=== PATIENT | male | born 1935 | race Caucasian/White ===

== ENCOUNTER 2025-01-21 13:14 | Outpatient (CLI) | payer MEDICARE, OTHER, SELFPAY ==
--- OUTSIDE RECORDS SUMMARY | 2025-01-21 13:30 | XMS_ITS | Encounter Summary ---
Author Organization [facility] Address [address] [place] [address] Care Team Providers Care Kraft Digester Operator Name Role Phone Unavailable Primary Care Provider Unavailabl e Encounter Details Date Type Department Care Team (Late st Contact Info) Description 10/31/2022 Lab Requisition [facility] - DermPath Lab [address] [place] [id number] Aditya Aly MD [address] [place] [address] Social History Tobacco Use Types Packs/Day Years Used Date Smoking Tobacco: Never Assessed Sex and Gender Information Value Date Recorded Sex Assigned at Not on file Legal Sex 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 Gender Identity Not on file Sexual Orientation Not on file documented as of this encounter Plan of Treatment Not on file documented as of this encounter Procedures Procedure Name Priority Date/Time Associated Diagnosis Comments DERMATOPATHOLOGY Routine 10/27/2022 12:0 0 AM CDT documented in this encounter Results * DERMATOPATHOLOGY (10/27/2022 12:00 AM CDT) Case Report Dermatopathology Report Case: [id number] Authorizing Provider: Aditya Aly MD Collected: 10/27/2022 12:00 AM Ordering Location: [facility] DermPath Lab Received: 10/31/2022 07:22 AM Pathologist: Fawn Hickman MD Specimen: Skin, right chest 1:17 PM CDT DERMATOPATHOLOGY LABORATORY Final Diagnosis Specimen A. SKIN, right chest: PIGMENTED SEBORRHEIC KERATOSIS (L82.1) 1:17 PM CDT DERMATOPATHOLOGY LABORATORY at 1317 CDT Clinical History Nevus vs SK vs MM Path#[id number] 3 1:17 PM CDT DERMATOPATHOLOGY LABORATORY Gross Description Specimen A: Received is one formalin filled container labeled with the patient's name and designated right chest. The specimen consists of a shave biopsy measuring 6x5x1 mm. Jar 0. 3 1:17 PM CDT DERMATOPATHOLOGY LABORATORY Microscopic Description Specimen A. SKIN, right chest: Sections show an acanthotic lesion composed of relatively uniform keratinocytes. There is hyperkeratosis and pseudo horn cysts. Pigment is present in the keratinocytes composing this tumor. 3 1:17 PM CDT DERMATOPATHOLOGY LABORATORY Disclaimer An external and internal positive and negative controls are appropriate for the histochemical, immunohistochemical and immunofluorescence stain(s) in this case (if any), except where stated explicitly. The performance characteristics of the stain(s) cited in this report were developed and its performance characteristic determined by the Dermatopathology Laboratory at [facility], directed by Dr. Bashir Snyder. These tests need not be, and therefore are not, approved by the [place] Food and Drug Administration. The tests are used for clinical purposes. Billing Codes Specimen Charges Stain Charges 40205 1 3 1:17 PM CDT DERMATOPATHOLOGY LABORATORY Embedded Images 3 1:17 PM CDT DERMATOPATHOLOGY LABORATORY Pathology/Cytolog y TISSUE SPECIMEN FROM SKIN / Unknown 10/27/2022 10/31/2022 7:22 AM CDT Aditya Aly MD LAB - PATHOLOGY/CYTOLOGY ORDER LEAH Final Result DERMATOPATHOLOGY LABORATORY [facility] - Department of Dermatology [address] [place] [address], [facility] [phone] documented in this encounter Visit Diagnoses Not on filedocumented in this encounter
--- OUTSIDE RECORDS SUMMARY | 2025-01-21 13:30 | XMS_ITS | Encounter Summary ---
Author Organization [facility] Facility Care Team Providers Care Nurse Emergency Room Name Role Phone Ren Sanchez MD Primary Care Provid er Manuel Alicia MD Unavailable [phone] Nabila Vela Primary Care Provider [phone] Shannon Steven MD Unavailable Veronica Murdock Primary Care Provider + Ren Sanchez MD Primary Care Provid er Nabila Vela Primary Care Provider [phone] Veroinca Murdock Primary Care Provider + Cyndi Hayes MD Unavailable [phone] Encounter Details Date Type Department Care Team (Latest Contact Info) Description 06/27/2018 Orders Only [facility] CLIN[facility] ProviderRafael MD [address] [place] [address] Social History Tobacco Use Types Packs/Day Years Used Date Smoking Tobacco: Never Assessed Sex and Gender Information Value Date Recorded Sex Assigned at Not on file Legal Sex Male 4:15 AM LOOM STARTER Gender Identity Male 07/22/2020 7:05 AM LOOM STARTER Sexual Orientation Not on file documented as of this encounter Plan of Treatment Not on file documented as of this encounter Procedures Procedure Name Priority Date/Time Associated Diagnosis Comments CARDIOLOGY REPORT 07/24/2018 12: 00 AM LOOM STARTER PROCEDURE - RESULT 06/27/2018 12 :00 AM LOOM STARTER documented in this encounter Results * CARDIOLOGY REPORT (07/24/2018 12:00 AM LOOM STARTER) Anatomical Region Laterality Modality Other Narrative 07/24/2018 12:00 AM LOOM STARTER Ordered by an unspecified provider. us Historical Provider CV CARDIAC SERVICES PROCE DURES Final Result * PROCEDURE - RESULT (06/27/2018 12:00 AM LOOM STARTER) Narrative 06/27/2018 12:00 AM LOOM STARTER Ordered by an unspecified provider. us Historical Provider Final Res ult documented in this encounter Visit Diagnoses Not on filedocumented in this encounter Additional Health Concerns Infection Onset Date Last Indicated Resolved Time COVID: Suspected 05/13/2023 05/13/2023 05/13/2023 4:47 PM LOOM STARTER COVID: Suspected 05/13/2023 05/13/2023 05/13/2023 4:47 PM LOOM STARTER COVID19 05/13/2023 05/13/2023 05/23/2023 3:05 AM LOOM STARTER COVID: Recovered Comment:Added based on recent COVID infection. 05/23/2023 05/31/2023 08/21/2023 3:06 AM C DT COVID: Suspected 02/04/2024 02/04/2024 02/04/2024 12:07 PM CDT documented as of this encounter Care Teams Nurse Emergency Room Relationship Specialty Start Date End Date Ren Sanchez MD [address] [place] [address] PCP - General Family Medicine 07/15/18 04/20/24 Nabila Vela PA [address] [place] [address] PCP - General Family Medicine 04/21/24 05/05/24 Veronica Murdock PA [address] [facility] [address] [place] [address] PCP - General Family Medicine 05/06/24 05/11/24 Ren Sanchez MD [address] [place] [address] PCP - General Family Medicine 05/12/24 07/13/24 Nabila Vela PA [address] [place] [address] PCP - General Family Medicine 07/14/24 10/05/24 Veronica Murdock PA [address] [address] PCP - General Family Medicine 10/06/24 Manuel Alicia MD [address] [place] [address] Referring Physician Cardiovascular Disease 01/07/19 Shannon Steven MD [address] [facility], [address] [address] Consulting Physician Pain Management 05/02/24 Cyndi Hayes MD [address] [place] [address] Consulting Physician Family Medicine 11/20/24 documented as of this encounter
--- OUTSIDE RECORDS SUMMARY | 2025-01-21 13:30 | XMS_ITS | Encounter Summary ---
Author Organization [facility] Facility Care Team Providers Care Life Skills Coordinator Volunteer Name Role Phone Ren Sanchez MD Primary Care Provid er Manuel Alicia MD Unavailable [phone] Nabila Vela Primary Care Provider [phone] Shannon Steven MD Unavailable Veronica Murdock Primary Care Provider + Ren Sanchez MD Primary Care Provid er Nabila Vela Primary Care Provider [phone] Veronica Murdock Primary Care Provider + Cyndi Hayes MD Unavailable [phone] Encounter Details Date Type Department Care Team (Latest Contact Info) Description 02/26/2017 Orders Only [facility] CLINCON[facility] ProviderRafael MD [address] [place] [address] Social History Tobacco Use Types Packs/Day Years Used Date Smoking Tobacco: Never Assessed Sex and Gender Information Value Date Recorded Sex Assigned at Not on file Legal Sex Male 4:15 AM VP DESIGN Gender Identity Male 07/22/2020 7:05 AM VP DESIGN Sexual Orientation Not on file documented as of this encounter Plan of Treatment Not on file documented as of this encounter Procedures Procedure Name Priority Date/Time Associated Diagnosis Comments SCAN - LABS 03/12/2017 12:00 AM CDT documented in this encounter Results * SCAN - LABS (03/12/2017 12:00 AM CDT) Narrative 03/12/2017 12:00 AM CDT Ordered by an unspecified provider. us Historical Provider Final Res ult documented in this encounter Visit Diagnoses Not on filedocumented in this encounter Additional Health Concerns Infection Onset Date Last Indicated Resolved Time COVID: Suspected 05/13/2023 05/13/2023 05/13/2023 4:47 PM VP DESIGN COVID: Suspected 05/13/2023 05/13/2023 05/13/2023 4:47 PM VP DESIGN COVID19 05/13/2023 05/13/2023 05/23/2023 3:05 AM VP DESIGN COVID: Recovered Comment:Added based on recent COVID infection. 05/23/2023 05/31/2023 08/21/2023 3:06 AM C DT COVID: Suspected 02/04/2024 02/04/2024 02/04/2024 12:07 PM CDT documented as of this encounter Care Teams Life Skills Coordinator Volunteer Relationship Specialty Start Date End Date Ren Sanchez MD [address] [place] [address] PCP - General Family Medicine 07/15/18 04/20/24 Nabila Vela PA [address] [place] [address] PCP - General Family Medicine 04/21/24 05/05/24 Veronica Murdock PA [address] [address] PCP - General Family Medicine 05/06/24 05/11/24 Ren Sanchez MD [address] [place] [address] PCP - General Family Medicine 05/12/24 07/13/24 Nabila Vela PA [address] [place] [address] PCP - General Family Medicine 07/14/24 10/05/24 Veronica Murdock PA [address] [address] PCP - General Family Medicine 10/06/24 Manuel Alicia MD [address] [place] [address] Referring Physician Cardiovascular Disease 01/07/19 Shannon Steven MD [address] [facility], [address] [address] Consulting Physician Pain Management 05/02/24 Cyndi Hayes MD [address] [place] [address] Consulting Physician Family Medicine 11/20/24 documented as of this encounter
--- OUTSIDE RECORDS SUMMARY | 2025-01-21 13:30 | XMS_ITS | Clinical Summary ---
Author Organization [facility] Address [address] [place] [address] Care Team Providers Care Tip Finisher Name Role Phone Unavailable Primary Care Provider Unavailabl e Source Comments [facility],non-owned Affiliates and Associated Physician Practices is amultiple site organization consisting of ambulatory clinics and hospital sitesin [place], [place], [place] and [place]. This disclosure is being madepursuant to the Care Everywhere program and may not contain all information available regarding this patient. 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 Gender Identity Not on file Sexual Orientation Not on file Plan of Treatment Health Maintenance Due Date Last Done Comments MEDICARE AWV 12 MONTHS 1937 DTAP/TDAP/TD VACCINES (1 - Tdap) 1956 PNEUMOCOCCAL VACCINE 50+ (1 of 1 - PCV) 09/01/1987 ZOSTER VACCINE (1 of 2) 09/01/1987 Respiratory Syncytial Virus (RSV) Vaccine Pt: or over 60 yrs (1 - 1-dose 75+ series) 2012 COVID-19 VACCINE ( - 2023-2 5 season) 2024 DEPRESSION SCREENING 05/28/2024 INFLUENZA VACCINE (#1) 2025 HEPATITIS B VACCINE Aged Out No longe r eligible based on patient's age to complete this topic HIB VACCINE Aged Out No longer eligi ble based on patient's age to complete this topic HPV VACCINE Aged Out No longer eligi ble based on patient's age to complete this topic MENINGOCOCCAL (Group B) VACC INE SHARED DECISION-MAKING Aged Out No longer eligibl e based on patient's age to complete this topic MENINGOCOCCAL GROUPS A/C/Y/W VACCINE Aged Out No longer eligible b ased on patient's age to complete this topic Insurance MEDICARE
--- OUTSIDE RECORDS SUMMARY | 2025-01-21 13:30 | XMS_ITS | Encounter Summary ---
Author Organization [facility] Facility Care Team Providers Care Company Truck Driver Name Role Phone Ren Sanchez MD Primary Care Provid er Manuel Alicia MD Unavailable [phone] Nabila Vela Primary Care Provider [phone] Shannon Steven MD Unavailable Veronica Murdock Primary Care Provider + Ren Sanchez MD Primary Care Provid er Nabila Vela Primary Care Provider [phone] Veronica Murdock Primary Care Provider + Cyndi Hayes MD Unavailable [phone] Encounter Details Date Type Department Care Team (Latest Contact Info) Description 07/11/2018 Orders Only [facility] CLINCON[facility] ProviderRafael MD [address] [place] [address] Social History Tobacco Use Types Packs/Day Years Used Date Smoking Tobacco: Never Assessed Sex and Gender Information Value Date Recorded Sex Assigned at Not on file Legal Sex Male 4:15 AM MACHINE DYER Gender Identity Male 07/22/2020 7:05 AM MACHINE DYER Sexual Orientation Not on file documented as of this encounter Plan of Treatment Not on file documented as of this encounter Procedures Procedure Name Priority Date/Time Associated Diagnosis Comments PROCEDURE - RESULT 07/10/2018 12 :00 AM MACHINE DYER documented in this encounter Results * PROCEDURE - RESULT (07/10/2018 12:00 AM MACHINE DYER) Narrative 07/10/2018 12:00 AM MACHINE DYER Ordered by an unspecified provider. us Historical Provider Final Res ult documented in this encounter Visit Diagnoses Not on filedocumented in this encounter Additional Health Concerns Infection Onset Date Last Indicated Resolved Time COVID: Suspected 05/13/2023 05/13/2023 05/13/2023 4:47 PM MACHINE DYER COVID: Suspected 05/13/2023 05/13/2023 05/13/2023 4:47 PM MACHINE DYER COVID19 05/13/2023 05/13/2023 05/23/2023 3:05 AM MACHINE DYER COVID: Recovered Comment:Added based on recent COVID infection. 05/23/2023 05/31/2023 08/21/2023 3:06 AM C DT COVID: Suspected 02/04/2024 02/04/2024 02/04/2024 12:07 PM CDT documented as of this encounter Care Teams Company Truck Driver Relationship Specialty Start Date End Date Ren Sanchez MD [address] [place] [address] PCP - General Family Medicine 07/15/18 04/20/24 Nabila Vela PA [address] [place] [address] PCP - General Family Medicine 04/21/24 05/05/24 Veronica Murdock PA [address] [address] PCP - General Family Medicine 05/06/24 05/11/24 Ren Sanchez MD [address] [place] [address] PCP - General Family Medicine 05/12/24 07/13/24 Nabila Vela PA [address] [place] [address] PCP - General Family Medicine 07/14/24 10/05/24 Veronica Murdock PA [address] [address] PCP - General Family Medicine 10/06/24 Manuel Alicia MD [address] [place] [address] Referring Physician Cardiovascular Disease 01/07/19 Shannon Steven MD [address] [facility], [address] [address] Consulting Physician Pain Management 05/02/24 Cyndi Hayes MD [address] [place] [address] Consulting Physician Family Medicine 11/20/24 documented as of this encounter
--- OUTSIDE RECORDS SUMMARY | 2025-01-21 13:30 | XMS_ITS | Encounter Summary ---
Author Organization [facility] Facility Care Team Providers Care Physical Aerodynamicist Name Role Phone Ren Sanchez MD Primary Care Provid er Manuel Alicia MD Unavailable [phone] Nabila Vela Primary Care Provider [phone] Shannon Steven MD Unavailable Veronica Murdock Primary Care Provider + Ren Sanchez MD Primary Care Provid er Nabila Vela Primary Care Provider [phone] Veronica Murdock Primary Care Provider + Cyndi Hayes MD Unavailable [phone] Encounter Details Date Type Department Care Team (Latest Contact Info) Description 04/10/2017 Orders Only [facility] CLINCONV ProviderRafael MD [address] [place] [address] Social History Tobacco Use Types Packs/Day Years Used Date Smoking Tobacco: Never Assessed Sex and Gender Information Value Date Recorded Sex Assigned at Not on file Legal Sex Male 4:15 AM LIP READING TEACHER Gender Identity Male 07/22/2020 7:05 AM LIP READING TEACHER Sexual Orientation Not on file documented as of this encounter Plan of Treatment Not on file documented as of this encounter Procedures Procedure Name Priority Date/Time Associated Diagnosis Comments SCAN - LABS 04/10/2017 12:00 AM LIP READING TEACHER documented in this encounter Results * SCAN - LABS (04/10/2017 12:00 AM LIP READING TEACHER) Narrative 04/10/2017 12:00 AM LIP READING TEACHER Ordered by an unspecified provider. us Historical Provider Final Res ult documented in this encounter Visit Diagnoses Not on filedocumented in this encounter Additional Health Concerns Infection Onset Date Last Indicated Resolved Time COVID: Suspected 05/13/2023 05/13/2023 05/13/2023 4:47 PM LIP READING TEACHER COVID: Suspected 05/13/2023 05/13/2023 05/13/2023 4:47 PM LIP READING TEACHER COVID19 05/13/2023 05/13/2023 05/23/2023 3:05 AM LIP READING TEACHER COVID: Recovered Comment:Added based on recent COVID infection. 05/23/2023 05/31/2023 08/21/2023 3:06 AM C DT COVID: Suspected 02/04/2024 02/04/2024 02/04/2024 12:07 PM CDT documented as of this encounter Care Teams Physical Aerodynamicist Relationship Specialty Start Date End Date Ren Sanchez MD [address] [place] [address] PCP - General Family Medicine 07/15/18 04/20/24 Nabila Vela PA [address] [place] [address] PCP - General Family Medicine 04/21/24 05/05/24 Veronica Murdock PA [address] [address] PCP - General Family Medicine 05/06/24 05/11/24 Ren Sanchez MD [address] [place] [address] PCP - General Family Medicine 05/12/24 07/13/24 Nabila Vela PA [address] [place] [address] PCP - General Family Medicine 07/14/24 10/05/24 Veronica Murdock PA [address] [address] PCP - General Family Medicine 10/06/24 Manuel Alicia MD [address] [place] [address] Referring Physician Cardiovascular Disease 01/07/19 Shannon Steven MD [address] [facility], [address] [address] Consulting Physician Pain Management 05/02/24 Cyndi Hayes MD [address] [place] [address] Consulting Physician Family Medicine 11/20/24 documented as of this encounter
--- OUTSIDE RECORDS SUMMARY | 2025-01-21 13:30 | XMS_ITS | Clinical Summary ---
Author Organization [facility] Address [address] [place] [address] Care Team Providers Care Tobacco Sweeper Name Role Phone Manuel Alicia MD Unavailable [phone] Shannon Steven MD Unavailable Veronica Murdock Primary Care Provider + Cyndi Hayes MD Unavailable [phone] Allergies Active Allergy Reactions Criticality Noted Date Comments Ibuprofen Other (See comments) Low 09/10/2018 Possible GI bleed Medications aspirin 81 mg chewable tablet 1 tablet (81 mg total) daily Active cholecalciferol, vitamin D3, (VITAMIN D3 ORAL)Indications :Seasonal allergic rhinitis due to pollen Take 2,000 Units by mouth Active fluticasone propionate (FLONASE) 50 mcg/actuation nasal spray Administer 1 spray into each nostril daily 48 g 1 Active albuterol HFA (PROVENTIL HFA,VENTOLIN HFA,PROAIR HFA) 90 mcg/actuation inhaler Inhale 2 puffs every 6 (six) hours as needed for wheezing 3 each 3 2 Active acetaminophen ER (TYLENOL) 650 mg 8 hr tablet Take 1 tablet (650 mg total) by mouth 3 (three) times a day Active metoprolol XL (TOPROL-XL) 25 mg extended release tablet Take 1 tablet (25 mg total) by mouth daily 2 Active docosahexaenoic acid/epa (FISH OIL ORAL) Fish Oil Active ascorbic acid (VITAMIN C ORAL) Take by mouth Active Xtandi 80 mg tabletIndication s:COVID-19 3 Active leuprolide 1 mg/0.2 mL kit Inject under the skin Every 6 months Active finasteride (PROSCAR) 5 mg tabletIndication s:Benign prostatic hyperplasia with weak urinary stream Take 1 tablet (5 mg total) by mouth daily 90 tablet 3 4 Active rosuvastatin (CRESTOR) 10 mg tabletIndication s:Dyslipidemia Take 1 tablet (10 mg total) by mouth daily 90 tablet 3 4 Active loratadine (CLARITIN) 10 mg tablet Take 1 tablet (10 mg total) by mouth daily 90 tablet 11 4 Active meclizine (ANTIVERT) 25 mg tablet Take 1 tablet (25 mg total) by mouth 3 (three) times a day as needed for dizziness Active pramipexole (MIRAPEX) 0.5 mg tablet TAKE 1 TABLET BY MOUTH THREE TIMES DAILY 90 tablet 5 5 Active TiZANidine (ZANAFLEX) 4 mg capsule Take 1 capsule (4 mg total) by mouth 3 (three) times a day Takes 1 daily Active gabapentin (NEURONTIN) 300 mg capsuleIndicatio ns:Idiopathic neuropathy Take 1 capsule (300 mg total) by mouth work force advisor before breakfast AND 1 capsule (300 mg total) daily after lunch AND 2 capsules (600 mg total) nightly. 300mg in AM, 300mg at noon, 600mg at night. 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 His DME is [facility] home care. Medicare annual wellness visit, subsequent 07/28 Overview (07/28/2024): PMH: mwv: 07/28/24 Last colonoscopy/cologuard: aged out Last Hep C: Last PSA: 06/2023 Last tdap:due Last Prevnar/pneumovax:completed Last Shingrix:completed Last eye exam: due Assessment & Plan (07/28/2024 12:42 PM CHISEL MORTISER OPERATOR): PMH: mwv: 07/28/24 Last colonoscopy/cologuard: aged out Last Hep C: Last PSA: 06/2023 Last tdap:due Last Prevnar/pneumovax:completed Last Shingrix:completed Last eye exam: due Prostate cancer 07/28/2024 Assessment & Plan (10/07/2024 8:01 AM CDT): Under control with PSA of 0.3. On Xtandi and Lupron. - Continue Xtandi and Lupron injections as per current regimen with urologist/oncologist Assessment & Plan (07/28/2024 12:57 PM CHISEL MORTISER OPERATOR): Followed by urology. Patient is on Xtandi Lymphedema of both lower extremities 06/17/2024 Assessment & Plan (10/07/2024 8:01 AM CDT): Managed with compression sleeves and pneumatic pumps Start PT Orders: Ambulatory referral order to Physical Therapy -; Future Assessment & Plan (07/28/2024 12:56 PM CHISEL MORTISER OPERATOR): Chronic, patient just completed physical therapy. Patient reports his leg pump just arrived today. Will use daily Assessment & Plan (07/08/2024 8:44 AM CHISEL MORTISER OPERATOR): Lymphedema bilateral lower extremities with concomitant venous hypertension. Patient was tried and failed 4 weeks of knee-high compression therapy. I have recommended moving forward pneumatic compression regimen in addition to ongoing compression regimen and leg elevation. Follow up 1 month re-evaluation. Assessment & Plan (06/17/2024 10:17 AM CHISEL MORTISER OPERATOR): History of heart failure ? Recent labs reviewed, normal BNP Has been following with Cardiology and had an echocardiogram 1-2 years ago, Dr. 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 Unable to take aspirin due to history of GI ulcer and bleeding Congestive heart failure wit h left ventricular diastolic dysfunction 05/18/2020 Assessment & Plan (07/28/2024 12:55 PM CHISEL MORTISER OPERATOR): Chronic, stable, followed by Cardiology. Patient is on metoprolol and Lasix History of upper gastrointestinal hemorrhage Assessment & Plan (07/28/2024 12:55 PM CHISEL MORTISER OPERATOR): Unable to take aspirin Low back pain without sciatica 05/18/2020 Seasonal allergies 07/25/2019 Status post total knee replacement, left 019 Primary osteoarthritis of right knee 11/13/2018 Dyslipidemia 11/25/2017 Assessment & Plan (07/28/2024 12:54 PM CHISEL MORTISER OPERATOR): Chronic, stable, continue Crestor Assessment & Plan (07/08/2024 8:44 AM CHISEL MORTISER OPERATOR): Dyslipidemia chronic controlled. Continue current medical management. Assessment & Plan (04/21/2024 12:17 PM CHISEL MORTISER OPERATOR): Patient is stable, will continue Crestor. Repeat labs in 3 months Peripheral vascular disease 11/25/2017 Assessment & Plan (07/28/2024 12:55 PM CHISEL MORTISER OPERATOR): Chronic, stable, followed by vascular. Assessment & Plan (07/08/2024 8:43 AM CHISEL MORTISER OPERATOR): Patient does not have clinically significant arterial occlusive disease. Palpable pedal pulses. Primarily underlying lymphedema and venous hypertension needs compression. No arterial workup needed follow up PRN. Assessment & Plan (06/17/2024 10:16 AM CHISEL MORTISER OPERATOR): Noted PVD in patient's previous cardiology notes Following with Dr. Alicia, cardiology Patient requesting referral to vascular Ongoing swelling in both legs, no improvement with diuretic Reviewed recent venous Dopplers Primary osteoarthritis involving multiple joints 12/20/2016 Assessment & Plan (07/28/2024 12:55 PM CHISEL MORTISER OPERATOR): Chronic, stable, continue Celebrex Restless legs syndrome (RLS) 04/10/2016 Assessment & Plan (10/07/2024 8:01 AM CDT): Exacerbated by compression sleeves and sitting. Managed with gabapentin. - Increase gabapentin to two tablets at night. Assessment & Plan (07/28/2024 12:55 PM CHISEL MORTISER OPERATOR): Chronic, stable, continue Mirapex Enlarged prostate with lower urinary tract sympt oms (LUTS) 12/09/2015 Assessment & Plan (07/28/2024 12:54 PM CHISEL MORTISER OPERATOR): Chronic, stable, followed by Urology, continue Proscar Gastro-esophageal reflux disease without esophag itis 12/09/2015 Assessment & Plan (07/28/2024 12:55 PM CHISEL MORTISER OPERATOR): Chronic, stable, meds only as needed. Unable to take blood thinner/aspirin due to history of bleeding ulcer Tinnitus, bilateral 12/09/2015 Unspecified hearing loss, bilateral 12/09/2015 Former smoker 11/11/2015 Vertigo 11/11/2015 Assessment & Plan (07/28/2024 12:55 PM CHISEL MORTISER OPERATOR): Chronic, stable, continue meclizine only as needed Benign hypertension 11/09/2015 Assessment & Plan (07/28/2024 12:54 PM CHISEL MORTISER OPERATOR): Chronic, stable, continue metoprolol Assessment & Plan (04/21/2024 12:17 PM CHISEL MORTISER OPERATOR): Stable, patient will continue current blood pressure meds. We will continue with the Lasix 10 mg daily. Repeat labs in 3 months Assessment & Plan (04/14/2024 4:05 PM CHISEL MORTISER OPERATOR): Chronic/stable. Continue meds. Will monitor with lasix Chronic obstructive lung disease 11/09/2015 Assessment & Plan (10/07/2024 8:01 AM CDT): Chronic, stable condition. Continue current medication regimen: albuterol PRN, Breo inhalers Follows with pulmonary Assessment & Plan (07/28/2024 12:54 PM CHISEL MORTISER OPERATOR): Chronic, stable, continue Breo inhaler and albuterol as needed. Followed by Pulmonary Resolved Problems Problem Noted Date Diagnosed Date Resolved Date Snoring 07/23/2024 07/28/2024 Assessment & Plan (07/23/2024 11:44 AM CHISEL MORTISER OPERATOR): I have ordered a nocturnal polysomnogram split night protocol if necessary, no MSLT. The patient is concerned due to frequent urination during the night. The patient states that he does have a limited time before he needs to go to the bathroom. Hypersomnia 07/23/2024 07/28/2024 Neuropathy 04/14/2024 10/07/2024 Assessment & Plan (07/28/2024 12:55 PM CHISEL MORTISER OPERATOR): Chronic, stable, continue gabapentin Assessment & Plan (04/21/2024 12:17 PM CHISEL MORTISER OPERATOR): Stable, patient will continue gabapentin. Follow-up in 3 months COVID-19 05/13/2023 07/28/2024 Assessment & Plan (05/13/2023 5:31 PM CHISEL MORTISER OPERATOR): VSS, NAD, lungs CTAB Hx of COPD, RAD, former smoker Rapid covid+ Sx duration 3 days Qualifies for paxlovid based on age, BMI, COPD hx, RAD hx, former smoker, CHF, however patient is on Xtandi and combination not recommended with Paxlovid. Avoid combination recommendation. Discussed he may reach out to his oncologist or PCP for more information. Monitor signs for COPD exacerbation, discussed ER for CP, SOB, oxygen saturations less than 93% persistently, ,dizziness, confusion Tessalon as cough suppressant as needed Self-care: Rest as much as possible. Slowly start to do more each day. Take the medicines recommended by your doctor for fever, body aches, cough, or headaches. (Tylenol or aches/pains/fever as needed) (Antihistamines like Claritin or Benadryl as needed for drainage) (Delsym and cough drops/throat lozenges as needed for cough) Drink more liquids as directed to help thin and loosen mucus so it is easier to cough up. Liquids such as water, fruit juice, and broth also help keep you hydrated. Soothe a sore throat by gargling with warm salt water. Make salt water by dissolving teaspoon salt in 1 cup warm water (8 ounces). Older children and adults can also use throat lozenges, ice chips, or sore throat spray. Use a humidifier or vaporizer to increase air moisture in your home. This may make it easier to breathe and help decrease coughing. Use saline nasal drops as directed to relieve congestion. Apply petroleum-based jelly around the outside of nostrils to decrease irritation from blowing your nose. DO NOT smoke or vape. Nicotine and other chemicals in cigarettes and cigars can make your symptoms worse. Monitor your symptoms: Seek medical attention right away if your symptoms get worse, such as if you are having difficulty breathing, shortness of breath, new confusion or inability to arouse, or bluish lips or face. If you have a pulse ox monitor at home, monitor your oxygen saturations with this device. If you find your Oxygen Saturation is falling 92% or below please notify your PCP right away or seek medical attention. Or if you experience fever uncontrolled with antipyretics, shortness of breath, chest discomfort, uncontrolled n/v/d If you have a medical emergency, call 911 and notify the EMS personnel that you have or are being evaluated for COVID-19. Put on a facemask before emergency medical services arrive -briefly discussed antiviral therapy, call your PCP for more information and to see if you meet criteria for treatment. [facility] Information: While waiting for your COVID-19 test result or if your COVID-19 test is positive: ISOLATE: Stay home except to get medical care! Separate yourself from other people and pets in your home: Do not go to work, school, or public areas, such as stores or social gatherings. Do not use public transportation. If available, stay in a separate bedroom and use a separate bathroom. Ask others to care for your pets. (If possible) Wear a facemask when around other people or pets. Cover your mouth and nose with a tissue when you cough or sneeze. If a tissue is not available, cough or sneeze into your upper sleeve (not your hands). Throw tissues away in trash-can that has a bag in it. Empty your trash daily. Always wash your hands after you throw away the tissue or garbage. If you test Positive for COVID-19 Given what we currently know about COVID-19 and the Omicron variant, CDC is shortening the recommended time for isolation from 10 days for people with COVID-19 to 5 days, if asymptomatic, followed by 5 days of wearing a mask when around others. The change is motivated by science demonstrating that the majority of SARS-CoV-2 transmission occurs early in the course of illness, generally in the 1-2 days prior to onset of symptoms and the 2-3 days after. Therefore, people who test positive should isolate for 5 days and, if asymptomatic at that time, they may leave isolation if they can continue to mask for 5 days to minimize the risk of infecting others. Quarantine for those exposed to COVID-19 Additionally, CDC is updating the recommended quarantine period for those exposed to COVID-19. For people who are unvaccinated or are more than six months out from their second mRNA dose (or more than 2 months after the J&J vaccine) and not yet boosted, CDC now recommends quarantine for 5 days followed by strict mask use for an additional 5 days. Alternatively, if a 5-day quarantine is not feasible, it is imperative that an exposed person wear a well-fitting mask at all times when around others for 10 days after exposure. Individuals who have received their booster shot do not need to quarantine following an exposure, but should wear a mask for 10 days after the exposure. For all those exposed, best practice would also include a test for SARS-CoV-2 at day 5 after exposure. If symptoms occur, individuals should immediately quarantine until a negative test confirms symptoms are not attributable to COVID-19. Isolation relates to behavior after a confirmed infection. Isolation for 5 days followed by wearing a well-fitting mask will minimize the risk of spreading the virus to others. Quarantine refers to the time following exposure to the virus or close contact with someone known to have COVID-19. Both updates come as the Omicron variant continues to spread throughout the [place] and reflects the current science on when and for how long a person is maximally infectious. If You Were Exposed to Someone with COVID-19 (Quarantine) If you: Have been boosted OR Completed the primary series of Pfizer or Moderna vaccine within the last 6 months OR Completed the primary series of J&J vaccine within the last 2 months Wear a mask around others for 10 days. Test on day 5, if possible. If you develop symptoms get a test and stay home. If you: Completed the primary series of Pfizer or Moderna vaccine over 6 months ago and are not boosted OR Completed the primary series of J&J over 2 months ago and are not boosted OR Are unvaccinated Stay home for 5 days. After that continue to wear a mask around others for 5 additional days. If you can t quarantine you must wear a mask for 10 days. Test on day 5 if possible. If you develop symptoms get a test and stay home If You Test Positive for COVID-19 (Isolate) Everyone, regardless of vaccination status. Stay home for 5 days. If you have no symptoms or your symptoms are resolving after 5 days, you can leave your house. Continue to wear a mask around others for 5 additional days. If you have a fever, continue to stay home until your fever resolves. Sinus tachycardia 07/25/2019 07/28/2024 Assessment & Plan (04/21/2024 12:17 PM CHISEL MORTISER OPERATOR): Stable, followed by Cardiology. Repeat labs in 3 months Coronary arteriosclerosis 04/23/2018 Bleeding gastric ulcer 03/19/201807/28 PVC (premature ventricular contraction) 12/20/2016 07/28/2024 Anal spasm 12/09/2015 07/28/2024 Reactive airway disease 11/15/20150 07/2024 Overview (12/31/2018): Son has history of asthma Chronic rhinitis 11/11/2015 07/28/2024 Unspecified hemorrhoids 11/11/20150 07/2024 Wheezing 11/11/2015 07/28/2024 Encounters Date Type Department Care Team Description 12/29/2024 2:00 PM CDT Therapy [facility] Physical Therapy [address] [place] [id number] Pain in left foot; Pain in right foot 12/11/2024 2:23 PM CDT - 12/11/2024 11:59 PM CDT Hospital Encounter [facility] Pain Mgmt [address] [place] [phone] Shannon Steven MD Bulge of lumbar disc without myelopathy (Primary Dx); Facet arthropathy, lumbar Discharge Disposition: Discharge to home or self care 12/03/2024 9:44 AM CDT - 12/03/2024 11:59 PM CDT Hospital Encounter [facility] Pain [facility] [address] [place] [address] Shannon Steven MD Pain of lumbar facet joint (Primary Dx); Lumbar facet arthropathy Discharge Disposition: Discharge to home or self care 11/27/2024 3:30 PM CDT Therapy [facility] Physical Therapy [address] [place] [phone] Nimo Logan, PT Imbalance (Primary Dx) 11/24/2024 10:45 AM CDT Therapy [facility] Physical Therapy [address] [place] [id number] Zee Joe, GM Imbalance (Primary Dx) 11/20/2024 9:08 AM CDT - 11/20/2024 11:59 PM CDT Hospital Encounter [facility] Pain Mgmt [facility] [address] [place] [address] Shannon Steven MD Lumbar facet arthropathy (Primary Dx); Pain of lumbar facet joint Discharge Disposition: Discharge to home or self care 11/19/2024 1:30 PM CDT Therapy [facility] Physical Therapy [address] [place] [address] [address] [place] [address] Zee Joe, GM Imbalance (Primary Dx) 11/17/2024 2:15 PM CDT Therapy [facility] Physical Therapy [address] [place] [place] [address] [address] [place] [address] Zee Joe, GM Imbalance (Primary Dx) 11/14/2024 Telephone [facility] Pulmonology [address] [facility] [address] [place] [phone] Chio Wtats 11/12/2024 12:45 PM CDT Therapy [facility] Physical Therapy [address] [place] [place] [address] [address] [place] [address] Zee Joe, GM Imbalance (Primary Dx) 11/10/2024 11:30 AM CDT Therapy [facility] Physical Therapy [address] [place] [id number] Zee Joe, GM Imbalance (Primary Dx) 11/05/2024 3:45 PM CDT Therapy [facility] Physical Therapy [address] [place] [place] [address] [address] [place] [address] Zee Joe, GM Imbalance (Primary Dx); Numbness of right foot 11/03/2024 12:45 PM CDT Therapy [facility] Physical Therapy [address] [place] [place] [address] [address] [place] [address] Nabila Pedraza, GM Lymphedema of both lower extremities (Primary Dx) 10/27/2024 8:58 AM CDT - 10/27/2024 11:59 PM CDT Hospital Encounter [facility] Pain Mgmt [address] [place] [place] [address] [address] [place] [address] Shannon Steven MD Bulge of lumbar disc without myelopathy (Primary Dx); Lumbar radiculopathy; Neural foraminal stenosis of lumbar spine Discharge Disposition: Discharge to home or self care 10/23/2024 3:45 PM CDT Therapy [facility] Physical Therapy [address] [place] [address] [address] [place] [address] Nimo Logan, PT Imbalance; Idiopathic neuropathy; Lymphedema of both lower extremities 10/23/2024 Plan of Care Documentation [facility] Physical Therapy [address] [place] [phone] from Last 3 Months Immunizations Immunization Administration Dates Next Due Hib (PRP-OMP) 04/11/2017 Influenza, Quad, Adjuvantate d, Intramuscular 02/12/2020 Influenza, Quadrivalent, Spl it, Preservative Free, Intramuscular 03/04/2021,03/08/2018 Influenza, Split 04/12/2007, 6,04/11/2005,05/06 Influenza, Trivalent, Adjuva nted, Intramuscular 01/07/2019 Influenza, Trivalent, Cell Culture-based MDCK, Preservative Free, Antibiotic Free, Intramuscular 02/15/2017 Influenza, Trivalent, IM (MDV) 03/14/2017,2015 Influenza, Trivalent, Preser vative Free, Intramuscular 02/12/2020,02/20/2018,03/21/2017,02/26,03/03/2015,03/14/2014,03/03/2013 Influenza, Unspecified 04/30/2024,2023(Deferred: Patient Refused),03/15/2023,05/12/2022(Deferre d: Patient Refused),05/02/2022,03/04/2021, 011 Influenza, Whole 05/05/2003, 1,06/07/2000,03/19 Pfizer SARS-CoV-2 Monovalent Vaccination (12+ Yrs) PURPLE 03/18/2021,07/23/2020,07/01/2020 Pneumococcal Conjugate PCV 13 03/14/2014 Pneumococcal Polysaccharide PPV23 01/26/2010, Td, Unspecified 04/30/2024,12/27/2004 Td, adsorbed 12/27/2004 Tdap 03/14/2014 ZOSTER LIVE 07/22/2007 ZOSTER Recombinant 03/15/2023,01/11/2023 Surgical History Surgery Date Site/Laterality Comments TONSILLECTOMY THUMB SURGERY JOINT REPLACEMENT 2018 knee replacement KNEE SURGERY Left TOTAL KNEE ARTHROPLASTY 02/10/2019 Right CATARACT EXTRACTION Implants installed LASIK G TUBE PLACEMENT INJECTION ANESTHETIC AGENT O R STEROID FORAMEN LUMBAR OR SACRAL 05/02/2024 CARDIAC CATHETERIZATION 05/29/2024 Medical History Medical History Date Comments Hemorrhoids Clubbed fingers Tinnitus SOB (shortness of breath) Vertigo Rhinitis, chronic Dyspnea Wheezing Irregular heartbeat Asthma Unknown Peptic ulceration Unknown Emphysema of lung Unknown H/O: GI bleed Restless legs syndrome (RLS) Osteoarthritis Alcohol abuse Quit drinking 1995 (?) Cancer (HCC) Diagnosed prostate c ancer after bi-op on 05 Mar 2023 Cataract No, surgery, implants, both eyes Heart disease See medical records Infectious viral hepatitis UnknownJaundice 1955 Hypertension Unknown Neuromuscular disorder Unknown Substance abuse (HCC) No Blindness No Mixed conductive and sensori neural hearing loss No Prostate cancer (HCC) Anal spasm 12/09/2015 Bleeding gastric ulcer 03/19/2018 PVC (premature ventricular contraction) 12/20/2016 GI (gastrointestinal bleed) 2018 Lymphedema Prostate cancer (HCC) Agent orange exposure Family History Medical History Relation Name Comments Cancer Father Edinson Perez Diabetes Father Edinson Perez Diabetes Maternal Grandmother Shanti Perez Cancer Mother Arthritis Other Heart disease Other Relation Name Status Comments Father Edinson Perez Maternal Grandmother Shanti Perez Mother Other Social History Tobacco Use Types Packs/Day Years Used Date Smoking Tobacco: Former Cigarettes Q uit: 1973 Smokeless Tobacco: Never Tobacco Cessation:Counseling Given: Not Answered Alcohol Use Standard Drinks/Week Comments Defer 0 (1 standard drink = 0.6 oz pur e alcohol) AUDIT-C Answer Date Recorded Q1: How often do you have a drink containing alcohol? Never 12/11/2024 Q2: How many drinks containi ng alcohol do you have on a typical day when you are drinking? Patient does not drink Q3: How often do you have si x or more drinks on one occasion? Never 12/11/2024 PHQ-2 Answer Date Recorded PHQ-2 Total Score (If total score is 3 or more points, staff should administer the PHQ-9) 0 10/06/2024 PHQ-9 Answer Date Recorded PHQ-9 Total Score 9 07/28/2024 Personal Safety Answer Date Recorded Have you ever been in or are you currently in a harmful physical or emotional relationship or is someone making you feel afraid or unsafe? Denies 05/29/2024 Sex and Gender Information Value Date Recorded Sex Assigned at Not on file Legal Sex Male 4:15 AM CHISEL MORTISER OPERATOR Gender Identity Male 07/22/2020 7:05 AM CHISEL MORTISER OPERATOR Sexual Orientation Not on file Occupation Industry Job Start Date Job End Date retired Not on file Not on file Not on file Obstetrics History Last Filed Vital Signs Vital Sign Reading Time Taken Comments Blood Pressure 119/66 12/11/2024 2:34 PM CDT Pulse 88 12/11/2024 2:34 PM CDT Temperature 36.2 C (97.1 F) 12/11/2024 2:34 PM CDT Respiratory Rate 20 12/11/2024 2:34 PM CDT Oxygen Saturation 96% 12/11/2024 2:34 PM CDT Inhaled Oxygen Concentration - - Weight 105 kg (231 lb 6.4 oz) 12/11/2024 2:34 PM CDT Height 182.9 cm (6') 11/20/2024 9:31 AM CDT Body Mass Index 31.38 11/20/2024 9:31 AM CDT Plan of Treatment Health Maintenance Due Date Last Done Comments Hepatitis B Screening 09/01/1953 Covid-19 Vaccine (2023-2 5 season) 2024 03/18/2021, 07/23/2020, 07/01/2020 Influenza Vaccine (#1) 2025 , 03/15/2023, 05/02/2022, Additional history exists Fall Risk Assessment 07/28/2025 07/28/2024, 05/29/2024, 06/01/2023, Additional history exists Well Visit 65+ 07/28/2025 07/28/2024, 010 09/2023, 06/01/2023, Additional history exists Depression Screening 10/06/2025 10/06/2024, 07/28/2024, 07/28/2024, Additional history exists DTaP/Tdap/Td Vaccine (3 - Td or Tdap) 04/30/2034 04/30/2024, 03/14/2014, 12/27/2004, Additional history exists Pneumococcal vaccine 65+ Completed 014, 01/26/2010, 05/16/2007 Zoster Vaccine Completed 03/15/2023, 12/26, 07/22/2007 Procedures Procedure Name Priority Date/Time Associated Diagnosis Comments PAIN MGMT IMAGING LUMBAR/SACRAL SELECTIVE NERVE ROOT INJ (TFE) BILATERAL Schedule Routine, Read Routine (OP Routine) 10/27/2024 9:54 AM CDT Lumbar radiculopathy from Last 3 Months Results * Imaging Lumbar/Sacral Selective Nerve Root INJ (TFE) Bilateral (07872) (10/27/2024 9:54 AM CDT) Narrative [email or web address] - 10/27/2024 4:24 PM CDT The images from this study are not interpreted by Radiology. Please refer to the physician's procedure / OR operative note. us Shannon Steven MD IMG PAIN MGMT PROCEDURES Final R esult [email or web address] from Last 3 Months Insurance MEDICARE FOR LIFE MEDICARE FOR LIFE Advance Directives For more information, please contact: [phone] * Full Code (Latest Code Status on File) Date Activated Date Inactivated Comments 05/29/2024 5:14 PM 05/29/2024 9:21 PM Care Teams Tobacco Sweeper Relationship Specialty Start Date End Date Veronica Murdock PA [address] [facility] [address] [place] [address] PCP - General Family Medicine 10/06/24 Manuel Alicia MD Referring Physician Cardiovascular Disease 01/07/19 Shannon Steven MD [address] [facility], [facility] [address] [place] [address] Consulting Physician Pain Management 05/02/24 Cyndi Hayes MD [address] [place] [address] Consulting Physician Family Medicine 11/20/24
--- OUTSIDE RECORDS SUMMARY | 2025-01-21 13:30 | XMS_ITS | Encounter Summary ---
Author Organization [facility] Facility Care Team Providers Care Unit Receptionist Name Role Phone Ren Sanchez MD Primary Care Provid er Manuel Alicia MD Unavailable [phone] Nabila Vela Primary Care Provider [phone] Shannon Steven MD Unavailable Veronica Murdock Primary Care Provider + Ren Sanchez MD Primary Care Provid er Nabila Vela Primary Care Provider [phone] Veronica Murdock Primary Care Provider + Cyndi Hayes MD Unavailable [phone] Encounter Details Date Type Department Care Team (Latest Contact Info) Description 04/22/2018 Orders Only [facility] CLINCONV ProviderRafael MD [address] [place] [address] Social History Tobacco Use Types Packs/Day Years Used Date Smoking Tobacco: Never Assessed Sex and Gender Information Value Date Recorded Sex Assigned at Not on file Legal Sex Male 4:15 AM DYE WEIGHER Gender Identity Male 07/22/2020 7:05 AM DYE WEIGHER Sexual Orientation Not on file documented as of this encounter Plan of Treatment Not on file documented as of this encounter Procedures Procedure Name Priority Date/Time Associated Diagnosis Comments PROCEDURE - RESULT 04/22/2018 12 :00 AM DYE WEIGHER documented in this encounter Results * PROCEDURE - RESULT (04/22/2018 12:00 AM DYE WEIGHER) Narrative 04/22/2018 12:00 AM DYE WEIGHER Ordered by an unspecified provider. us Historical Provider Final Res ult documented in this encounter Visit Diagnoses Not on filedocumented in this encounter Additional Health Concerns Infection Onset Date Last Indicated Resolved Time COVID: Suspected 05/13/2023 05/13/2023 05/13/2023 4:47 PM DYE WEIGHER COVID: Suspected 05/13/2023 05/13/2023 05/13/2023 4:47 PM DYE WEIGHER COVID19 05/13/2023 05/13/2023 05/23/2023 3:05 AM DYE WEIGHER COVID: Recovered Comment:Added based on recent COVID infection. 05/23/2023 05/31/2023 08/21/2023 3:06 AM C DT COVID: Suspected 02/04/2024 02/04/2024 02/04/2024 12:07 PM CDT documented as of this encounter Care Teams Unit Receptionist Relationship Specialty Start Date End Date Ren Sanchez MD [address] [place] [address] PCP - General Family Medicine 07/15/18 04/20/24 Nabila Vela PA [address] [place] [address] PCP - General Family Medicine 04/21/24 05/05/24 Veronica Murdock PA [address] [address] PCP - General Family Medicine 05/06/24 05/11/24 Ren Sanchez MD [address] [place] [address] PCP - General Family Medicine 05/12/24 07/13/24 Nabila Vela PA [address] [place] [address] PCP - General Family Medicine 07/14/24 10/05/24 Veronica Murdock PA [address] [address] PCP - General Family Medicine 10/06/24 Manuel Alicia MD [address] [place] [address] Referring Physician Cardiovascular Disease 01/07/19 Shannon Steven MD [address] [facility], [address] [address] Consulting Physician Pain Management 05/02/24 Cyndi Hayes MD [address] [place] [address] Consulting Physician Family Medicine 11/20/24 documented as of this encounter
--- OUTSIDE RECORDS SUMMARY | 2025-01-21 13:30 | XMS_ITS | Clinical Summary ---
Author Organization [facility] Address [facility] [place] [address] Care Team Providers Care Fiscal Officer Name Role Phone Unavailable Primary Care Provider Unavailabl e Social History Tobacco Use Types Packs/Day Years Used Date Smoking Tobacco: Never Assessed Sex and Gender Information Value Date Recorded Sex Assigned at Not on file Legal Sex Male 7:16 PM CDT Gender Identity Not on file Sexual Orientation Not on file Plan of Treatment Health Maintenance Due Date Last Done Comments DTaP, Tdap and Td Vaccines ( 1 - Tdap) 1954 Pneumococcal Vaccine: 50+ Ye ars (1 of 1 - PCV) 09/01/1987 Zoster Vaccines (1 of 2) 09/01/1987 RSV Immunization or 60+ Years (1 - 1-dose 75+ series) 2012 COVID-19 Vaccine ( - 2023-2 5 season) 2024 Meningococcal B Vaccine Aged Out No l onger eligible based on patient's age to complete this topic Meningococcal Vaccine Aged Out No eduardo vamsi eligible based on patient's age to complete this topic RSV Immunizations Under 20 Months Aged Out No longer eligible based on patient's age to complete this topic
--- OUTSIDE RECORDS SUMMARY | 2025-01-21 13:30 | XMS_ITS | Encounter Summary ---
Author Organization [facility] Facility Care Team Providers Care Mold Insert Changer Name Role Phone Ren Sanchez MD Primary Care Provid er Manuel Alicia MD Unavailable [phone] Nabila Vela Primary Care Provider [phone] Shannon Steven MD Unavailable Veronica Murdock Primary Care Provider + Ren Sanchez MD Primary Care Provid er Nabila Vela Primary Care Provider [phone] Veronica Murdock Primary Care Provider + Cyndi Hayes MD Unavailable [phone] Encounter Details Date Type Department Care Team (Latest Contact Info) Description 07/09/2018 Orders Only [facility] CLINCONV ProviderRafael MD [address] [place] [address] Social History Tobacco Use Types Packs/Day Years Used Date Smoking Tobacco: Never Assessed Sex and Gender Information Value Date Recorded Sex Assigned at Not on file Legal Sex Male 4:15 AM FUEL SYSTEM MAINTENANCE WORKER Gender Identity Male 07/22/2020 7:05 AM FUEL SYSTEM MAINTENANCE WORKER Sexual Orientation Not on file documented as of this encounter Plan of Treatment Not on file documented as of this encounter Procedures Procedure Name Priority Date/Time Associated Diagnosis Comments PROCEDURE - RESULT 07/09/2018 12 :00 AM FUEL SYSTEM MAINTENANCE WORKER documented in this encounter Results * PROCEDURE - RESULT (07/09/2018 12:00 AM FUEL SYSTEM MAINTENANCE WORKER) Narrative 07/09/2018 12:00 AM FUEL SYSTEM MAINTENANCE WORKER Ordered by an unspecified provider. us Historical Provider Final Res ult documented in this encounter Visit Diagnoses Not on filedocumented in this encounter Additional Health Concerns Infection Onset Date Last Indicated Resolved Time COVID: Suspected 05/13/2023 05/13/2023 05/13/2023 4:47 PM FUEL SYSTEM MAINTENANCE WORKER COVID: Suspected 05/13/2023 05/13/2023 05/13/2023 4:47 PM FUEL SYSTEM MAINTENANCE WORKER COVID19 05/13/2023 05/13/2023 05/23/2023 3:05 AM FUEL SYSTEM MAINTENANCE WORKER COVID: Recovered Comment:Added based on recent COVID infection. 05/23/2023 05/31/2023 08/21/2023 3:06 AM C DT COVID: Suspected 02/04/2024 02/04/2024 02/04/2024 12:07 PM CDT documented as of this encounter Care Teams Mold Insert Changer Relationship Specialty Start Date End Date Ren Sanchez MD [address] [place] [address] PCP - General Family Medicine 07/15/18 04/20/24 Nabila Vela PA [address] [place] [address] PCP - General Family Medicine 04/21/24 05/05/24 Veronica Murdock PA [address] [address] PCP - General Family Medicine 05/06/24 05/11/24 Ren Sanchez MD [address] [place] [address] PCP - General Family Medicine 05/12/24 07/13/24 Nabila Vela PA [address] [place] [address] PCP - General Family Medicine 07/14/24 10/05/24 Veronica Murdock PA [address] [address] PCP - General Family Medicine 10/06/24 Manuel Alicia MD [address] [place] [address] Referring Physician Cardiovascular Disease 01/07/19 Shannon Steven MD [address] [facility], [address] [address] Consulting Physician Pain Management 05/02/24 Cyndi Hayes MD [address] [place] [address] Consulting Physician Family Medicine 11/20/24 documented as of this encounter
--- OUTSIDE RECORDS SUMMARY | 2025-01-21 13:30 | XMS_ITS | Encounter Summary ---
Author Organization [facility] Facility Care Team Providers Care Office Receptionist Name Role Phone Ren Sanchez MD Primary Care Provid er Manuel Alicia MD Unavailable [phone] Nabila Vela Primary Care Provider [phone] Shannon Steven MD Unavailable Veronica Murdock Primary Care Provider + Ren Sanchez MD Primary Care Provid er Nabila Vela Primary Care Provider [phone] Veronica Murdock Primary Care Provider + Cyndi Hayes MD Unavailable [phone] Encounter Details Date Type Department Care Team (Latest Contact Info) Description 04/02/2018 Orders Only [facility] CLINCONV ProviderRafael MD [address] [place] [address] Social History Tobacco Use Types Packs/Day Years Used Date Smoking Tobacco: Never Assessed Sex and Gender Information Value Date Recorded Sex Assigned at Not on file Legal Sex Male 4:15 AM PEN MAKER Gender Identity Male 07/22/2020 7:05 AM PEN MAKER Sexual Orientation Not on file documented as of this encounter Plan of Treatment Not on file documented as of this encounter Procedures Procedure Name Priority Date/Time Associated Diagnosis Comments CARDIOLOGY REPORT 04/22/2018 12: 00 AM PEN MAKER documented in this encounter Results * CARDIOLOGY REPORT (04/22/2018 12:00 AM PEN MAKER) Anatomical Region Laterality Modality Other Narrative 04/22/2018 12:00 AM PEN MAKER Ordered by an unspecified provider. us Historical Provider [facility] KYRA MELCHOR Final Result documented in this encounter Visit Diagnoses Not on filedocumented in this encounter Additional Health Concerns Infection Onset Date Last Indicated Resolved Time COVID: Suspected 05/13/2023 05/13/2023 05/13/2023 4:47 PM PEN MAKER COVID: Suspected 05/13/2023 05/13/2023 05/13/2023 4:47 PM PEN MAKER COVID19 05/13/2023 05/13/2023 05/23/2023 3:05 AM PEN MAKER COVID: Recovered Comment:Added based on recent COVID infection. 05/23/2023 05/31/2023 08/21/2023 3:06 AM C DT COVID: Suspected 02/04/2024 02/04/2024 02/04/2024 12:07 PM CDT documented as of this encounter Care Teams Office Receptionist Relationship Specialty Start Date End Date Ren Sanchez MD [address] [place] [address] PCP - General Family Medicine 07/15/18 04/20/24 Nabila Vela PA [address] [place] [address] PCP - General Family Medicine 04/21/24 05/05/24 Veronica Murdock PA [address] [address] PCP - General Family Medicine 05/06/24 05/11/24 Ren Sanchez MD [address] [place] [address] PCP - General Family Medicine 05/12/24 07/13/24 Nabila Vela PA [address] [place] [address] PCP - General Family Medicine 07/14/24 10/05/24 Veronica Murdock PA [address] [address] PCP - General Family Medicine 10/06/24 Manuel Alicia MD [address] [place] [address] Referring Physician Cardiovascular Disease 01/07/19 Shannon Steven MD [address] [facility], [address] [address] Consulting Physician Pain Management 05/02/24 Cyndi Hayes MD [address] [place] [address] Consulting Physician Family Medicine 11/20/24 documented as of this encounter
--- OUTSIDE RECORDS SUMMARY | 2025-01-21 13:30 | XMS_ITS | Encounter Summary ---
Author Organization [facility] Facility Care Team Providers Care Fishing Floats Assembler Name Role Phone Ren Sanchez MD Primary Care Provid er Manuel Alicia MD Unavailable [phone] Nabila Vela Primary Care Provider [phone] Shannon Steven MD Unavailable Veronica Murdock Primary Care Provider + Ren Sanchez MD Primary Care Provid er Nabila Vela Primary Care Provider [phone] Veronica Murdock Primary Care Provider + Cyndi Hayes MD Unavailable [phone] Encounter Details Date Type Department Care Team (Latest Contact Info) Description 11/16/2016 Orders Only [facility] CLINCONV ProviderRafael MD [address] [place] [address] Social History Tobacco Use Types Packs/Day Years Used Date Smoking Tobacco: Never Assessed Sex and Gender Information Value Date Recorded Sex Assigned at Not on file Legal Sex Male 4:15 AM DEAF/HARD OF HEARING SPECIALIST Gender Identity Male 07/22/2020 7:05 AM DEAF/HARD OF HEARING SPECIALIST Sexual Orientation Not on file documented as of this encounter Plan of Treatment Not on file documented as of this encounter Procedures Procedure Name Priority Date/Time Associated Diagnosis Comments SCAN - LABS 11/16/2016 12:00 AM CDT documented in this encounter Results * SCAN - LABS (11/16/2016 12:00 AM CDT) Narrative 11/16/2016 12:00 AM CDT Ordered by an unspecified provider. us Historical Provider Final Res ult documented in this encounter Visit Diagnoses Not on filedocumented in this encounter Additional Health Concerns Infection Onset Date Last Indicated Resolved Time COVID: Suspected 05/13/2023 05/13/2023 05/13/2023 4:47 PM DEAF/HARD OF HEARING SPECIALIST COVID: Suspected 05/13/2023 05/13/2023 05/13/2023 4:47 PM DEAF/HARD OF HEARING SPECIALIST COVID19 05/13/2023 05/13/2023 05/23/2023 3:05 AM DEAF/HARD OF HEARING SPECIALIST COVID: Recovered Comment:Added based on recent COVID infection. 05/23/2023 05/31/2023 08/21/2023 3:06 AM C DT COVID: Suspected 02/04/2024 02/04/2024 02/04/2024 12:07 PM CDT documented as of this encounter Care Teams Fishing Floats Assembler Relationship Specialty Start Date End Date Ren Sanchez MD [address] [place] [address] PCP - General Family Medicine 07/15/18 04/20/24 Nabila Vela PA [address] [place] [address] PCP - General Family Medicine 04/21/24 05/05/24 Veronica Murdock PA [address] [address] PCP - General Family Medicine 05/06/24 05/11/24 Ren Sanchez MD [address] [place] [address] PCP - General Family Medicine 05/12/24 07/13/24 Nabila Vela PA [address] [place] [address] PCP - General Family Medicine 07/14/24 10/05/24 Veronica Murdock PA [address] [address] PCP - General Family Medicine 10/06/24 Manuel Alicia MD [address] [place] [address] Referring Physician Cardiovascular Disease 01/07/19 Shannon Steven MD [address] [facility], [address] [address] Consulting Physician Pain Management 05/02/24 Cyndi Hayes MD [address] [place] [address] Consulting Physician Family Medicine 11/20/24 documented as of this encounter
--- OUTSIDE RECORDS SUMMARY | 2025-01-21 13:30 | XMS_ITS ---
Author Organization [facility] Address [address] [place] [address] Care Team Providers Care Centrifuge Separator Operator Name Role Phone Manuel Alicia MD Unavailable [phone] Shannon Steven MD Unavailable Veronica Murdock Primary Care Provider + Cyndi Hayes MD Unavailable [phone] Active Problems Problem Noted Date Diagnosed Date Obstructive sleep apnea 10/08/2024 Assessment & Plan (10/08/2024 2:36 PM CDT): The patient continue to wear his BiPAP at an IPAP of 24 cm water pressure and EPAP of 20 cm of water pressure. His DME is [facility] home care. Medicare annual wellness visit, subsequent 07/28 Overview (07/28/2024): PMH: mwv: 07/28/24 Last colonoscopy/cologuard: aged out Last Hep C: Last PSA: 06/2023 Last tdap:due Last Prevnar/pneumovax:completed Last Shingrix:completed Last eye exam: due Assessment & Plan (07/28/2024 12:42 PM DOPE SPRAYER): PMH: mwv: 07/28/24 Last colonoscopy/cologuard: aged out Last Hep C: Last PSA: 06/2023 Last tdap:due Last Prevnar/pneumovax:completed Last Shingrix:completed Last eye exam: due Prostate cancer 07/28/2024 Assessment & Plan (10/07/2024 8:01 AM CDT): Under control with PSA of 0.3. On Xtandi and Lupron. - Continue Xtandi and Lupron injections as per current regimen with urologist/oncologist Assessment & Plan (07/28/2024 12:57 PM DOPE SPRAYER): Followed by urology. Patient is on Xtandi Lymphedema of both lower extremities 06/17/2024 Assessment & Plan (10/07/2024 8:01 AM CDT): Managed with compression sleeves and pneumatic pumps Start PT Orders: Ambulatory referral order to Physical Therapy -; Future Assessment & Plan (07/28/2024 12:56 PM DOPE SPRAYER): Chronic, patient just completed physical therapy. Patient reports his leg pump just arrived today. Will use daily Assessment & Plan (07/08/2024 8:44 AM DOPE SPRAYER): Lymphedema bilateral lower extremities with concomitant venous hypertension. Patient was tried and failed 4 weeks of knee-high compression therapy. I have recommended moving forward pneumatic compression regimen in addition to ongoing compression regimen and leg elevation. Follow up 1 month re-evaluation. Assessment & Plan (06/17/2024 10:17 AM DOPE SPRAYER): History of heart failure ? Recent labs reviewed, normal BNP Has been following with Cardiology and had an echocardiogram 1-2 years ago, Dr. Alicia Ongoing swelling in both legs, no improvement with diuretic Reviewed recent venous Dopplers Referral to vascular Atherosclerosis of [place] ronary artery of [place] heart without angina pectoris 05/12/2024 Assessment & Plan (07/28/2024 12:56 PM DOPE SPRAYER): Chronic, stable, continue Crestor. Unable to take aspirin due to history of GI ulcer and bleeding Congestive heart failure wit h left ventricular diastolic dysfunction 05/18/2020 Assessment & Plan (07/28/2024 12:55 PM DOPE SPRAYER): Chronic, stable, followed by Cardiology. Patient is on metoprolol and Lasix History of upper gastrointestinal hemorrhage Assessment & Plan (07/28/2024 12:55 PM DOPE SPRAYER): Unable to take aspirin Low back pain without sciatica 05/18/2020 Seasonal allergies 07/25/2019 Status post total knee replacement, left 019 Primary osteoarthritis of right knee 11/13/2018 Dyslipidemia 11/25/2017 Assessment & Plan (07/28/2024 12:54 PM DOPE SPRAYER): Chronic, stable, continue Crestor Assessment & Plan (07/08/2024 8:44 AM DOPE SPRAYER): Dyslipidemia chronic controlled. Continue current medical management. Assessment & Plan (04/21/2024 12:17 PM DOPE SPRAYER): Patient is stable, will continue Crestor. Repeat labs in 3 months Peripheral vascular disease 11/25/2017 Assessment & Plan (07/28/2024 12:55 PM DOPE SPRAYER): Chronic, stable, followed by vascular. Assessment & Plan (07/08/2024 8:43 AM DOPE SPRAYER): Patient does not have clinically significant arterial occlusive disease. Palpable pedal pulses. Primarily underlying lymphedema and venous hypertension needs compression. No arterial workup needed follow up PRN. Assessment & Plan (06/17/2024 10:16 AM DOPE SPRAYER): Noted PVD in patient's previous cardiology notes Following with Dr. Alicia, cardiology Patient requesting referral to vascular Ongoing swelling in both legs, no improvement with diuretic Reviewed recent venous Dopplers Primary osteoarthritis involving multiple joints 12/20/2016 Assessment & Plan (07/28/2024 12:55 PM DOPE SPRAYER): Chronic, stable, continue Celebrex Restless legs syndrome (RLS) 04/10/2016 Assessment & Plan (10/07/2024 8:01 AM CDT): Exacerbated by compression sleeves and sitting. Managed with gabapentin. - Increase gabapentin to two tablets at night. 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 Unable to take blood thinner/aspirin due to history of bleeding ulcer Tinnitus, bilateral 12/09/2015 Unspecified hearing loss, bilateral 12/09/2015 Former smoker 11/11/2015 Vertigo 11/11/2015 Assessment & Plan (07/28/2024 12:55 PM DOPE SPRAYER): Chronic, stable, continue meclizine only as needed Benign hypertension 11/09/2015 Assessment & Plan (07/28/2024 12:54 PM DOPE SPRAYER): Chronic, stable, continue metoprolol Assessment & Plan (04/21/2024 12:17 PM DOPE SPRAYER): Stable, patient will continue current blood pressure meds. We will continue with the Lasix 10 mg daily. Repeat labs in 3 months Assessment & Plan (04/14/2024 4:05 PM DOPE SPRAYER): Chronic/stable. Continue meds. Will monitor with lasix Chronic obstructive lung disease 11/09/2015 Assessment & Plan (10/07/2024 8:01 AM CDT): Chronic, stable condition. Continue current medication regimen: albuterol PRN, Breo inhalers Follows with pulmonary Assessment & Plan (07/28/2024 12:54 PM DOPE SPRAYER): Chronic, stable, continue Breo inhaler and albuterol as needed. Followed by Pulmonary Current Treatment and Therapy Plans No current plan information found. Past Treatment and Therapy Plans No past plan information found. Lifetime Dose Tracking * Chemical Lifetime Dose Automatic Entry Manual Entr y Fluoro Time 2.2 minutes 1.2 minutes 1 minutes Air kerma at the reference point (Ka,r) 390.04 mGy 5 3.58 mGy 336.46 mGy DAP 21.038 Gy-cm2 0 Gy-cm2 21.038 Gy-cm2 Resolved Problems Problem Noted Date Diagnosed Date Resolved Date Snoring 07/23/2024 07/28/2024 Assessment & Plan (07/23/2024 11:44 AM DOPE SPRAYER): I have ordered a nocturnal polysomnogram split night protocol if necessary, no MSLT. The patient is concerned due to frequent urination during the night. The patient states that he does have a limited time before he needs to go to the bathroom. Hypersomnia 07/23/2024 07/28/2024 Neuropathy 04/14/2024 10/07/2024 Assessment & Plan (07/28/2024 12:55 PM DOPE SPRAYER): Chronic, stable, continue gabapentin Assessment & Plan (04/21/2024 12:17 PM DOPE SPRAYER): Stable, patient will continue gabapentin. Follow-up in 3 months COVID-19 05/13/2023 07/28/2024 Assessment & Plan (05/13/2023 5:31 PM DOPE SPRAYER): VSS, NAD, lungs CTAB Hx of COPD, [...] see if you meet criteria for treatment. CDC Information: While waiting for your COVID-19 test [...] 07/28/2024 Assessment & Plan (04/21/2024 12:17 PM DOPE SPRAYER): Stable, followed by Cardiology. Repeat labs in 3 months Coronary arteriosclerosis 04/23/2018 Bleeding gastric ulcer 03/19/201807/28 PVC (premature ventricular contraction) 12/20/2016 07/28/2024 Anal spasm 12/09/2015 07/28/2024 Reactive airway disease 11/15/201507/2024 Overview (12/31/2018): Son has history of asthma Chronic rhinitis 11/11/2015 07/28/2024 Unspecified hemorrhoids 11/11/20150 07/2024 Wheezing 11/11/2015 07/28/2024
[2025-01-21 14:13] LABS: Anion Gap 7 mmol/L (4-12); Blood Urea Nitrogen 19 mg/dL (9-20); Calcium 9.4 mg/dL (8.4-10.2); Carbon Dioxide 28 mmol/L (22-30); Chloride 104 mmol/L (98-107); Estimated Glomerular Filt Rate > 60; Glucose 118 mg/dL (65-110); Potassium 3.9 mmol/L (3.4-5.0); Sodium 139 mmol/L (137-145)
== END 2025-01-21 13:15 | disposition home or self-care (01) ==
LOC: ANHSURGERY 13:21
PROVIDERS: Anesthesiology; Visit Provider Orthopaedic Surgery
DX: Z79.899 Other long term (current) drug therapy (principal)
CPT/HCPCS: 36415; 80048

== ENCOUNTER 2025-01-29 01:22 | Day surgery (SDC) | payer MEDICARE, OTHER, SELFPAY ==
--- OUTSIDE RECORDS SUMMARY | 2016-10-11 18:00 | XMS_ITS | Continuity of Care Document ---
Author Organization [facility] Address [address] [place] [address] [address] [place] [address] Phone Care Team Providers Care Hollow Ware Maker Name Role Phone Martín Rosen MD Unavailable Unavailable Advance Directives Directive Yes / No Effective Date File Name No Information Encounters Encounter Description Practice Location Reason(s) For Visit Diagnoses Date Provider Providers Copied on Encounter [facility], [address] [place] [address], [id number], tel:[phone] [address] [place] [address] [facility] Presence of intraocular lensDrusen (degenerative ) of macula, bilateralDry eye syndrome of bilateral lacrimal glandsOther vitreous opacities, bilateral 7 [facility]. [address] [place] [address], [address] [place] [address] , . tel:[phone] [facility], [address] [place] [address], [id number], tel:[phone] [address] [place] [address] [facility]TR-[facility] Mart[facility]. [address] [place] [address], [id number] , . tel:[phone] Family History Family Member Type Diagnosis Age At Onset Problem (finding) Fhx of cancer Problem (finding) Fhx of diabetes mellitu s Payers Payer name Insurance type Covered constitution party ID Authoriza tion(s) No Information Social History Type Description Quantity Date Captured Comments Alcohol Use Details No Caffeine Use Details Unknown Tobacco Use Status No Information Smoking Status No Information Non-Smoking Tobacco Use Details : No Details Available : No Details Available Sex Male Chief Complaint And Reason For Visit No Information Reason For Referral Reason For Referral No Information History Of Present Illness Encounter Date Complaint History Of Prese nt Illness No Information Functional Status Date Functional Assessmen t No Information Instructions Date Instruction Additional Infor mation No Information Assessments Type Assessment Date No Information Patient Care Teams Name Effective Dates (start - stop) Status Members No Information
[2025-01-19 12:21] VITALS: BMI 30.6
--- NOTE | 2025-01-19 12:37 | PC.NURSE ---
Report to the Outpatient Waiting Room, entrance under the green pavilion located off [facility], at time __07:00am on date ___01/29/25____. Planned Procedure Time: ___09:00am .? Time changes happen often and if your time is changed the preop area will call you the afternoon before. - You and your visitor will be asked to self-screen and do not enter if you have any COVID symptoms. Please call surgeon if you need to reschedule. - A mask is optional within the hospital at this time. Patients may have clear liquids (water, carbonated beverages, clear teas, apple juice) until 3 hours prior to surgery with a maximum of 20 ounces. - No food from midnight until time of surgery and no smoking, or chewing tobacco (or any form of nicotine). No chewing gum, candy or mints. (0600am) Take only the following medications with a SIP of water on the morning of surgery: ____Gabapentin, Pramipexole, and Tylenol DO NOT STOP ANY OF YOUR OTHER PRESCRIPTION MEDICATIONS PRIOR TO SURGERY EXCEPT THE FOLLOWING Hold all vitamins and supplements for 3 days per anesthesiologist. Date of last dose is 01/24/25. Medications to discontinue per physician ___Celebrex for [address] Argueta Date to take last dose____01/21/25 Please no make-up, nail hungarian, hairspray, perfume, deodorant, or body powder the day of surgery.? No jewelry (including any body piercings) or valuables the day of surgery, leave them at home.? Please take a shower or bath the night before, or the morning of, surgery with an antibacterial soap.? Wear comfortable, loose fitting clothing.? - Jewelry must be removed prior to entering the operating room.? Rings and piercings that are not removed may be cut off. - The hospital will not accept responsibility for valuables.? - Please leave all valuables, including medications, at home the day of surgery. If you are going home after surgery, a licensed local driver must drive you home.? - NO public transportation without another adult if you receive anesthesia. - We recommend that an adult stay with you for 24 hours following discharge. - We also recommend that you do not drive, make important decision, drink alcoholic beverages, or take any drugs that were not prescribed by your health care provider for at least 24 hours after your discharge time. Follow any additional instructions given to you from your surgeon. Telephone instructions given to __Patient & Marylu and asked if any additional questions and then verbalized understanding. Patient advised to call surgeon office or pre surgery nurse liaison [phone] if any additional questions.
[2025-01-29] VITALS (11 sets, daily range): BP systolic 112–143; BP diastolic 64–74; PULSE 60–77; RESP 13–18; TEMP 36.2–36.4; O2SAT 92–97
--- NOTE | ~2025-01-29 | XR_ITS ---
EXAM: XR surgery orthopedic - 01/29/2025 9:00 CDT History: 89 years old Male with LEFT HALLUX ATHRODESIS, 2ND AND 3RD HAMMER TOE CORRECTION Fluoroscopy time: 0.56 FINDINGS/ IMPRESSION: Multiple fluoroscopic images of external fixations of the second and third toes. ORIF of the first toe. Reviewed, dictated and finalized at location N.
--- OUTSIDE RECORDS SUMMARY | 2025-01-29 01:25 | XMS_ITS | Clinical Summary ---
Author Organization [facility] Address [address] [place] [address] Care Team Providers Care Manager Sports Name Role Phone Unavailable Primary Care Provider Unavailabl e Source Comments [facility],non-owned Affiliates and Associated Physician Practices is amultiple site organization consisting of ambulatory clinics and hospital sitesin [place], [place], [place] and [place]. This disclosure is being madepursuant to the Care Everywhere program and may not contain all information available regarding this patient. Last updated 18.[facility] Social History Tobacco Use Types Packs/Day Years Used Date Smoking Tobacco: Never Assessed Sex and Gender Information Value Date Recorded Sex Assigned at Not on file Legal Sex Male 7:43 PM DOUBLE NEEDLE STITCHER Gender Identity Not on file Sexual Orientation [...]
--- OUTSIDE RECORDS SUMMARY | 2025-01-29 01:25 | XMS_ITS | Encounter Summary ---
Author Organization [facility] Care Team Providers Care Access Services Assistant Name Role Phone Ren Sanchez MD Primary Care Provid er Manuel Alicia MD Unavailable [phone] Nabila Vela Primary Care Provider [phone] Shannon Steven MD Unavailable Veronica Murdock Primary Care Provider + Ren Sanchez MD Primary Care Provid er Nabila Vela Primary Care Provider [phone] Veronica Murdock Primary Care Provider + Cyndi Hayes MD Unavailable [phone] Encounter Details Date Type Department Care Team (Latest Contact Info) Description 07/09/2018 Orders Only [facility] ProviderRafael MD [address] [place] [address] Social History Tobacco Use Types Packs/Day Years Used Date Smoking Tobacco: Never Assessed Sex and Gender Information Value Date Recorded Sex Assigned at Not on file Legal Sex Male 4:15 AM CITY DISPATCHER Gender Identity Male 07/22/2020 7:05 AM CITY DISPATCHER Sexual Orientation Not on file documented as of this encounter Plan of Treatment Not on file documented as of this encounter Procedures Procedure Name Priority Date/Time Associated Diagnosis Comments PROCEDURE - RESULT 07/09/2018 12 :00 AM CITY DISPATCHER documented in this encounter Results * PROCEDURE - RESULT (07/09/2018 12:00 AM CITY DISPATCHER) Narrative 07/09/2018 12:00 AM CITY DISPATCHER Ordered by an unspecified provider. us Historical Provider Final Res ult documented in this encounter Visit Diagnoses Not on filedocumented in this encounter Additional Health Concerns Infection Onset Date Last Indicated Resolved Time COVID: Suspected 05/13/2023 05/13/2023 05/13/2023 4:47 PM CITY DISPATCHER COVID: Suspected 05/13/2023 05/13/2023 05/13/2023 4:47 PM CITY DISPATCHER COVID19 05/13/2023 05/13/2023 05/23/2023 3:05 AM CITY DISPATCHER COVID: Recovered Comment:Added based on recent COVID infection. 05/23/2023 05/31/2023 08/21/2023 3:06 AM C DT COVID: Suspected 02/04/2024 02/04/2024 02/04/2024 12:07 PM CDT documented as of this encounter Care Teams Access Services Assistant Relationship Specialty Start Date End Date Ren Sanchez MD [address] [place] [address] PCP - General Family Medicine 07/15/18 04/20/24 Nabila Vela PA [address] [place] [address] PCP - General Family Medicine 04/21/24 05/05/24 Veronica Murdock PA [address] [address] PCP - General Family Medicine 05/06/24 05/11/24 Ren Sanchez MD [address] [place] [address] PCP - General Family Medicine 05/12/24 07/13/24 Nabila Vela PA [address] [place] [address] PCP - General Family Medicine 07/14/24 10/05/24 Veronica Murdock PA [address] [address] PCP - General Family Medicine 10/06/24 Manuel Alicia MD [address] [place] [address] Referring Physician Cardiovascular Disease 01/07/19 Shannon Steven MD [address] [facility], [address] [address] Consulting Physician Pain Management 05/02/24 Cyndi Hayes MD [address] [place] [address] Consulting Physician Family Medicine 11/20/24 documented as of this encounter
--- OUTSIDE RECORDS SUMMARY | 2025-01-29 01:25 | XMS_ITS | Encounter Summary ---
Author Organization [facility] Facility Care Team Providers Care Digital Asset Manager Name Role Phone Ren Sanchez MD Primary Care Provid er Manuel Alicia MD Unavailable [phone] Nabila Vela Primary Care Provider [phone] Shannon Steven MD Unavailable Veronica Murdock Primary Care Provider + Ren Sanchez MD Primary Care Provid er Nabila Vela Primary Care Provider [phone] Veronica Murdock Primary Care Provider + Cyndi Hayes MD Unavailable [phone] Encounter Details Date Type Department Care Team (Latest Contact Info) Description 07/11/2018 Orders Only [facility] ProviderRafael MD [address] [place] [address] Social History Tobacco Use Types Packs/Day Years Used Date Smoking Tobacco: Never Assessed Sex and Gender Information Value Date Recorded Sex Assigned at Not on file Legal Sex Male 4:15 AM ASSISTANT TO THE PRESIDENT Gender Identity Male 07/22/2020 7:05 AM ASSISTANT TO THE PRESIDENT Sexual Orientation Not on file documented as of this encounter Plan of Treatment Not on file documented as of this encounter Procedures Procedure Name Priority Date/Time Associated Diagnosis Comments PROCEDURE - RESULT 07/10/2018 12 :00 AM ASSISTANT TO THE PRESIDENT documented in this encounter Results * PROCEDURE - RESULT (07/10/2018 12:00 AM ASSISTANT TO THE PRESIDENT) Narrative 07/10/2018 12:00 AM ASSISTANT TO THE PRESIDENT Ordered by an unspecified provider. us Historical Provider Final Res ult documented in this encounter Visit Diagnoses Not on filedocumented in this encounter Additional Health Concerns Infection Onset Date Last Indicated Resolved Time COVID: Suspected 05/13/2023 05/13/2023 05/13/2023 4:47 PM ASSISTANT TO THE PRESIDENT COVID: Suspected 05/13/2023 05/13/2023 05/13/2023 4:47 PM ASSISTANT TO THE PRESIDENT COVID19 05/13/2023 05/13/2023 05/23/2023 3:05 AM ASSISTANT TO THE PRESIDENT COVID: Recovered Comment:Added based on recent COVID infection. 05/23/2023 05/31/2023 08/21/2023 3:06 AM C DT COVID: Suspected 02/04/2024 02/04/2024 02/04/2024 12:07 PM CDT documented as of this encounter Care Teams Digital Asset Manager Relationship Specialty Start Date End Date Ren Sanchez MD [address] [place] [address] PCP - General Family Medicine 07/15/18 04/20/24 Nabila Vela PA [address] [place] [address] PCP - General Family Medicine 04/21/24 05/05/24 Veronica Murdock PA [address] [address] PCP - General Family Medicine 05/06/24 05/11/24 Ren Sanchez MD [address] [place] [address] PCP - General Family Medicine 05/12/24 07/13/24 Nabila Vela PA [address] [place] [address] PCP - General Family Medicine 07/14/24 10/05/24 Veronica Murdock PA [address] [address] PCP - General Family Medicine 10/06/24 Manuel Alicia MD [address] [place] [address] Referring Physician Cardiovascular Disease 01/07/19 Shannon Steven MD [address] [facility], [address] [address] Consulting Physician Pain Management 05/02/24 Cyndi Hayes MD [address] [place] [address] Consulting Physician Family Medicine 11/20/24 documented as of this encounter
--- OUTSIDE RECORDS SUMMARY | 2025-01-29 01:25 | XMS_ITS | Encounter Summary ---
Author Organization [facility] Address [address] [address] Care Team Providers Care Budget Counselor Name Role Phone Unavailable Primary Care Provider Unavailbouchra e Encounter Details Date Type Department Care Team (Late st Contact Info) Description 10/31/2022 Lab Requisition [facility] - DermPath Lab [address], [facility] [place] [id number] Aditya Aly MD [address] [place] [address] Social History Tobacco Use Types Packs/Day Years Used Date Smoking Tobacco: Never Assessed Sex and Gender Information Value Date Recorded Sex Assigned at Not on file Legal Sex Male 7:43 PM SERVICES REP Gender Identity Not on file Sexual Orientation Not on file documented as of this encounter Plan of Treatment Not on file documented as of this encounter Procedures Procedure Name Priority Date/Time Associated Diagnosis Comments DERMATOPATHOLOGY Routine 10/27/2022 12:0 0 AM CDT documented in this encounter Results * DERMATOPATHOLOGY (10/27/2022 12:00 AM CDT) Case Report Dermatopathology Report Case: [id number] Authorizing Provider: Aditya Aly MD Collected: 10/27/2022 12:00 AM Ordering Location: [facility] DermPath Lab Received: 10/31/2022 07:22 AM Pathologist: Fawn Hickman MD Specimen: Skin, right chest 1:17 PM CDT DERMATOPATHOLOGY LABORATORY Final Diagnosis Specimen A. SKIN, right chest: PIGMENTED SEBORRHEIC KERATOSIS (L82.1) 1:17 PM CDT DERMATOPATHOLOGY LABORATORY at 1317 CDT Clinical History Nevus vs SK vs MM Path#[id number] 1:17 PM CDT DERMATOPATHOLOGY LABORATORY Gross [...] characteristic determined by the Dermatopathology Laboratory at [facility], directed by Dr. Bashir Snyder. These tests need not be, and therefore are not, approved by the [place] Food and Drug Administration. The tests are used for clinical purposes. Billing Codes Specimen Charges Stain Charges 34960 1 3 1:17 PM CDT DERMATOPATHOLOGY LABORATORY Embedded Images 3 1:17 PM CDT DERMATOPATHOLOGY LABORATORY Pathology/Cytolog y TISSUE SPECIMEN FROM SKIN / Unknown 10/27/2022 10/31/2022 7:22 AM CDT us Aditya Aly MD LAB - PATHOLOGY/CYTOLOGY ORDER LEAH Final Result DERMATOPATHOLOGY LABORATORY [facility] - Department of Dermatology [address], [address] [phone] documented in this encounter Visit Diagnoses Not on filedocumented in this encounter
--- OUTSIDE RECORDS SUMMARY | 2025-01-29 01:25 | XMS_ITS | Clinical Summary ---
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 His DME is [facility] home care. Medicare annual wellness visit, subsequent 07/28 Overview (07/28/2024): PMH: mwv: 07/28/24 Last colonoscopy/cologuard: aged out Last Hep C: Last PSA: 06/2023 Last tdap:due Last Prevnar/pneumovax:completed Last Shingrix:completed Last eye exam: due Assessment & Plan (07/28/2024 12:42 PM GREEN CHAIN OFFBEARER): PMH: mwv: 07/28/24 Last colonoscopy/cologuard: aged out Last Hep C: Last PSA: 06/2023 Last tdap:due Last Prevnar/pneumovax:completed Last Shingrix:completed Last eye exam: due Prostate cancer 07/28/2024 Assessment & Plan (10/07/2024 8:01 AM CDT): Under control with PSA of 0.3. On Xtandi and Lupron. - Continue Xtandi and Lupron injections as per current regimen with urologist/oncologist Assessment & Plan (07/28/2024 12:57 PM GREEN CHAIN OFFBEARER): Followed by urology. Patient is on Xtandi Lymphedema of both lower extremities 06/17/2024 Assessment & Plan (10/07/2024 8:01 AM CDT): Managed with compression sleeves and pneumatic pumps Start PT Orders: Ambulatory referral order to Physical Therapy -; Future Assessment & Plan (07/28/2024 12:56 PM GREEN CHAIN OFFBEARER): Chronic, patient just completed physical therapy. Patient reports his leg pump just arrived today. Will use daily Assessment & Plan (07/08/2024 8:44 AM GREEN CHAIN OFFBEARER): Lymphedema bilateral lower extremities with concomitant venous hypertension. Patient was tried and failed 4 weeks of knee-high compression therapy. I have recommended moving forward pneumatic compression regimen in addition to ongoing compression regimen and leg elevation. Follow up 1 month re-evaluation. Assessment & Plan (06/17/2024 10:17 AM GREEN CHAIN OFFBEARER): History of heart failure ? Recent labs reviewed, normal BNP Has been following with Cardiology and had an echocardiogram 1-2 years ago, Dr. Alicia Ongoing swelling in both legs, no improvement with diuretic Reviewed recent venous Dopplers Referral to vascular Atherosclerosis of [place] ronary artery of [place] heart without angina pectoris 05/12/2024 Assessment & Plan (07/28/2024 12:56 PM GREEN CHAIN OFFBEARER): Chronic, stable, continue Crestor. Unable to take aspirin due to history of GI ulcer and bleeding Congestive heart failure wit h left ventricular diastolic dysfunction 05/18/2020 Assessment & Plan (07/28/2024 12:55 PM GREEN CHAIN OFFBEARER): Chronic, stable, followed by Cardiology. Patient is on metoprolol and Lasix History of upper gastrointestinal hemorrhage Assessment & Plan (07/28/2024 12:55 PM GREEN CHAIN OFFBEARER): Unable to take aspirin Low back pain without sciatica 05/18/2020 Seasonal allergies 07/25/2019 Status post total knee replacement, left 019 Primary osteoarthritis of right knee 11/13/2018 Dyslipidemia 11/25/2017 Assessment & Plan (07/28/2024 12:54 PM GREEN CHAIN OFFBEARER): Chronic, stable, continue Crestor Assessment & Plan (07/08/2024 8:44 AM GREEN CHAIN OFFBEARER): Dyslipidemia chronic controlled. Continue current medical management. Assessment & Plan (04/21/2024 12:17 PM GREEN CHAIN OFFBEARER): Patient is stable, will continue Crestor. Repeat labs in 3 months Peripheral vascular disease 11/25/2017 Assessment & Plan (07/28/2024 12:55 PM GREEN CHAIN OFFBEARER): Chronic, stable, followed by vascular. Assessment & Plan (07/08/2024 8:43 AM GREEN CHAIN OFFBEARER): Patient does not have clinically significant arterial occlusive disease. Palpable pedal pulses. Primarily underlying lymphedema and venous hypertension needs compression. No arterial workup needed follow up PRN. Assessment & Plan (06/17/2024 10:16 AM GREEN CHAIN OFFBEARER): Noted PVD in patient's previous cardiology notes Following with Dr. Alicia, cardiology Patient requesting referral to vascular Ongoing swelling in both legs, no improvement with diuretic Reviewed recent venous Dopplers Primary osteoarthritis involving multiple joints 12/20/2016 Assessment & Plan (07/28/2024 12:55 PM GREEN CHAIN OFFBEARER): Chronic, stable, continue Celebrex Restless legs syndrome (RLS) 04/10/2016 Assessment & Plan (10/07/2024 8:01 AM CDT): Exacerbated by compression sleeves and sitting. Managed with gabapentin. - Increase gabapentin to two tablets at night. 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 Unable to take blood thinner/aspirin due to history of bleeding ulcer Tinnitus, bilateral 12/09/2015 Unspecified hearing loss, bilateral 12/09/2015 Former smoker 11/11/2015 Vertigo 11/11/2015 Assessment & Plan (07/28/2024 12:55 PM GREEN CHAIN OFFBEARER): Chronic, stable, continue meclizine only as needed Benign hypertension 11/09/2015 Assessment & Plan (07/28/2024 12:54 PM GREEN CHAIN OFFBEARER): Chronic, stable, continue metoprolol Assessment & Plan (04/21/2024 12:17 PM GREEN CHAIN OFFBEARER): Stable, patient will continue current blood pressure meds. We will continue with the Lasix 10 mg daily. Repeat labs in 3 months Assessment & Plan (04/14/2024 4:05 PM GREEN CHAIN OFFBEARER): Chronic/stable. Continue meds. Will monitor with lasix Chronic obstructive lung disease 11/09/2015 Assessment & Plan (10/07/2024 8:01 AM CDT): Chronic, stable condition. Continue current medication regimen: albuterol PRN, Breo inhalers Follows with pulmonary Assessment & Plan (07/28/2024 12:54 PM GREEN CHAIN OFFBEARER): Chronic, stable, continue Breo inhaler and albuterol as needed. Followed by Pulmonary Resolved Problems Problem Noted Date Diagnosed Date Resolved Date Snoring 07/23/2024 07/28/2024 Assessment & Plan (07/23/2024 11:44 AM GREEN CHAIN OFFBEARER): I have ordered a nocturnal polysomnogram split night protocol if necessary, no MSLT. The patient is concerned due to frequent urination during the night. The patient states that he does have a limited time before he needs to go to the bathroom. Hypersomnia 07/23/2024 07/28/2024 Neuropathy 04/14/2024 10/07/2024 Assessment & Plan (07/28/2024 12:55 PM GREEN CHAIN OFFBEARER): Chronic, stable, continue gabapentin Assessment & Plan (04/21/2024 12:17 PM GREEN CHAIN OFFBEARER): Stable, patient will continue gabapentin. Follow-up in 3 months COVID-19 05/13/2023 07/28/2024 Assessment & Plan (05/13/2023 5:31 PM GREEN CHAIN OFFBEARER): VSS, NAD, lungs CTAB Hx of COPD, [...] see if you meet criteria for treatment. [facility] Information: While waiting for your COVID-19 test [...] 07/28/2024 Assessment & Plan (04/21/2024 12:17 PM GREEN CHAIN OFFBEARER): Stable, followed by Cardiology. Repeat labs in 3 months Coronary arteriosclerosis 04/23/2018 Bleeding gastric ulcer 03/19/201807/28 PVC (premature ventricular contraction) 12/20/2016 07/28/2024 Anal spasm 12/09/2015 07/28/2024 Reactive airway disease 11/15/20150 07/2024 Overview (12/31/2018): Son has history of asthma Chronic rhinitis 11/11/2015 07/28/2024 Unspecified hemorrhoids 11/11/20150 07/2024 Wheezing 11/11/2015 07/28/2024 Encounters Date Type Department Care Team Description 12/29/2024 2:00 PM CDT Therapy [facility] Physical Therapy [address] [place] [address] Pain in left foot; Pain in right foot 12/11/2024 2:23 PM CDT - 12/11/2024 11:59 PM CDT Hospital Encounter [facility] Pain Mgmt [address] [place] [address] Shannon Steven MD Bulge of lumbar disc without myelopathy (Primary Dx); Facet arthropathy, lumbar Discharge Disposition: Discharge to home or self care 12/03/2024 9:44 AM CDT - 12/03/2024 11:59 PM CDT Hospital Encounter [facility] Pain [facility] [address] [place] [address] Shannon Steven MD Pain of lumbar facet joint (Primary Dx); Lumbar facet arthropathy Discharge Disposition: Discharge to home or self care 11/27/2024 3:30 PM CDT Therapy [facility] OP Physical Therapy [address] [place] [address] Nimo Logan, PT Imbalance (Primary Dx) 11/24/2024 10:45 AM CDT Therapy [facility] OP Physical Therapy [address] [place] [address] eZe Joe, MARINE ENGINE DRIVER Imbalance (Primary Dx) 11/20/2024 9:08 AM CDT - 11/20/2024 11:59 PM CDT Hospital Encounter [facility] Pain Mgmt [facility] [address] [place] [address] Shannon Steven MD Lumbar facet arthropathy (Primary Dx); Pain of lumbar facet joint Discharge Disposition: Discharge to home or self care 11/19/2024 1:30 PM CDT Therapy [facility] Physical Therapy [address] [place] [address] [address] [place] [address] Zee Joe, MARINE ENGINE DRIVER Imbalance (Primary Dx) 11/17/2024 2:15 PM CDT Therapy [facility] Physical Therapy [address] [place] [address] [address] [place] [address] Zee Joe, MARINE ENGINE DRIVER Imbalance (Primary Dx) 11/14/2024 Telephone [facility] [address] [facility] [address] [place] [address] Chio Watts 11/12/2024 12:45 PM CDT Therapy [facility] Physical Therapy [address] [place] [address] [address] [place] [address] Zee Joe, MARINE ENGINE DRIVER [place]mbalance (Primary Dx) 11/10/2024 11:30 AM CDT Therapy [facility] Physical Therapy [address] [place] [address] [address] [place] [address] Zee Joe, MARINE ENGINE DRIVER Imbalance (Primary Dx) 11/05/2024 3:45 PM CDT Therapy [facility] Physical Therapy [address] [place] [address] [address] [place] [address] Zee Joe, MARINE ENGINE DRIVER Imbalance (Primary Dx); Numbness of right foot 11/03/2024 12:45 PM CDT Therapy [facility] Physical Therapy [address] [place] [address] [address] [place] [address] Nabila Pedraza, MARINE ENGINE DRIVER Lymphedema of both lower extremities (Primary Dx) from Last 3 Months Immunizations Immunization Administration [...] Site/Laterality Comments TONSILLECTOMY THUMB SURGERY JOINT REPLACEMENT 2017 knee replacement KNEE SURGERY Left TOTAL KNEE [...] (premature ventricular contraction) 12/20/2016 GI (gastrointestinal bleed) 2017 Lymphedema Prostate cancer (HCC) Agent orange exposure [...] on file Legal Sex Male 4:15 AM GREEN CHAIN OFFBEARER Gender Identity Male 07/22/2020 7:05 AM GREEN CHAIN OFFBEARER Sexual Orientation Not on file Occupation Industry [...] Comments Hepatitis B Screening 09/01/1953 Covid-19 Vaccine (2024- 6 season) 2025 03/18/2021, 07/23/2020, 07/01/2020 Influenza Vaccine (#1) 2025 , 03/15/2023, 05/02/2022, Additional history exists Fall Risk Assessment 07/28/2025 07/28/2024, 05/29/2024, 06/01/2023, Additional history exists Well Visit 65+ 07/28/2025 07/28/2024, 09/2023, 06/01/2023, Additional history exists Depression Screening 10/06/2025 10/06/2024, 07/28/2024, 07/28/2024, Additional history exists DTaP/Tdap/Td Vaccine (3 - Td or Tdap) 04/30/2034 04/30/2024, 03/14/2014, 12/27/2004, Additional history exists Pneumococcal vaccine 65+ Completed 014, 01/26/2010, 05/16/2007 Zoster Vaccine Completed 03/15/2023, 12/26, 07/22/2007 Insurance MEDICARE FOR LIFE MEDICARE FOR LIFE Advance Directives For more information, please contact: [phone] * Full Code (Latest Code Status on File) Date Activated Date Inactivated Comments 05/29/2024 5:14 PM 05/29/2024 9:21 PM Care Teams Distribution Specialist Relationship Specialty Start Date End Date Veronica Murdock PA [address] [facility] [address] [place], [place] [phone] PCP - General Family Medicine 10/06/24 Manuel Alicia MD Referring Physician Cardiovascular Disease 01/07/19 Shannon Steven MD [address] [facility], [facility] [address] [place], [place] [id number] Consulting Physician Pain Management 05/02/24 Cyndi Hayes MD [address] [place] [address] Consulting Physician Family Medicine 11/20/24
--- OUTSIDE RECORDS SUMMARY | 2025-01-29 01:25 | XMS_ITS | Encounter Summary ---
Author Organization [facility] Facility Care Team Providers Care Plaster Mixer Name Role Phone Ren Sanchez MD Primary Care Provid er Manuel Alicia MD Unavailable [phone] Nabila Vela Primary Care Provider [phone] Shannon Steven MD Unavailable Veronica Murdock Primary Care Provider + Ren Sanchez MD Primary Care Provid er Nabila Vela Primary Care Provider [phone] Veronica Murdock Primary Care Provider + Cyndi Hayes MD Unavailable [phone] Encounter Details Date Type Department Care Team (Latest Contact Info) Description 04/22/2018 Orders Only [facility] ProviderRafael MD [address] [place] [address] Social History Tobacco Use Types Packs/Day Years Used Date Smoking Tobacco: Never Assessed Sex and Gender Information Value Date Recorded Sex Assigned at Not on file Legal Sex Male 4:15 AM PRESS FEEDER Gender Identity Male 07/22/2020 7:05 AM PRESS FEEDER Sexual Orientation Not on file documented as of this encounter Plan of Treatment Not on file documented as of this encounter Procedures Procedure Name Priority Date/Time Associated Diagnosis Comments PROCEDURE - RESULT 04/22/2018 12 :00 AM PRESS FEEDER documented in this encounter Results * PROCEDURE - RESULT (04/22/2018 12:00 AM PRESS FEEDER) Narrative 04/22/2018 12:00 AM PRESS FEEDER Ordered by an unspecified provider. us Historical Provider Final Res ult documented in this encounter Visit Diagnoses Not on filedocumented in this encounter Additional Health Concerns Infection Onset Date Last Indicated Resolved Time COVID: Suspected 05/13/2023 05/13/2023 05/13/2023 4:47 PM PRESS FEEDER COVID: Suspected 05/13/2023 05/13/2023 05/13/2023 4:47 PM PRESS FEEDER COVID19 05/13/2023 05/13/2023 05/23/2023 3:05 AM PRESS FEEDER COVID: Recovered Comment:Added based on recent COVID infection. 05/23/2023 05/31/2023 08/21/2023 3:06 AM C DT COVID: Suspected 02/04/2024 02/04/2024 02/04/2024 12:07 PM CDT documented as of this encounter Care Teams Plaster Mixer Relationship Specialty Start Date End Date Ren Sanchez MD [address] [place] [address] PCP - General Family Medicine 07/15/18 04/20/24 Nabila Vela PA [address] [place] [address] PCP - General Family Medicine 04/21/24 05/05/24 Veronica Murdock PA [address] [address] PCP - General Family Medicine 05/06/24 05/11/24 Ren Sanchez MD [address] [place] [address] PCP - General Family Medicine 05/12/24 07/13/24 Nabila Vela PA [address] [place] [address] PCP - General Family Medicine 07/14/24 10/05/24 Veronica Murdock PA [address] [address] PCP - General Family Medicine 10/06/24 Manuel Alicia MD [address] [place] [address] Referring Physician Cardiovascular Disease 01/07/19 Shannon Steven MD [address] [facility], [address] [address] Consulting Physician Pain Management 05/02/24 Cyndi Hayes MD [address] [place] [address] Consulting Physician Family Medicine 11/20/24 documented as of this encounter
--- OUTSIDE RECORDS SUMMARY | 2025-01-29 01:25 | XMS_ITS ---
Author Organization [facility] Address [address] [place] [address] Care Team Providers Care Clinical Staff Anesthesiologist Name Role Phone Manuel Alicia MD Unavailable [phone] Shannon Steven MD Unavailable Veronica Murdock Primary Care Provider + Cyndi Hayes MD Unavailable [phone] Active Problems Problem Noted Date Diagnosed Date Obstructive sleep apnea 10/08/2024 Assessment & Plan (10/08/2024 2:36 PM CDT): The patient continue to wear his BiPAP at an IPAP of 24 cm water pressure and EPAP of 20 cm of water pressure. His DME is [facility] home care. Medicare annual wellness visit, subsequent 07/28 Overview (07/28/2024): PMH: mwv: 07/28/24 Last colonoscopy/cologuard: aged out Last Hep C: Last PSA: 06/2023 Last tdap:due Last Prevnar/pneumovax:completed Last Shingrix:completed Last eye exam: due Assessment & Plan (07/28/2024 12:42 PM SUPERVISOR IN CHARGE): PMH: mwv: 07/28/24 Last colonoscopy/cologuard: aged out Last Hep C: Last PSA: 06/2023 Last tdap:due Last Prevnar/pneumovax:completed Last Shingrix:completed Last eye exam: due Prostate cancer 07/28/2024 Assessment & Plan (10/07/2024 8:01 AM CDT): Under control with PSA of 0.3. On Xtandi and Lupron. - Continue Xtandi and Lupron injections as per current regimen with urologist/oncologist Assessment & Plan (07/28/2024 12:57 PM SUPERVISOR IN CHARGE): Followed by urology. Patient is on Xtandi Lymphedema of both lower extremities 06/17/2024 Assessment & Plan (10/07/2024 8:01 AM CDT): Managed with compression sleeves and pneumatic pumps Start PT Orders: Ambulatory referral order to Physical Therapy -; Future Assessment & Plan (07/28/2024 12:56 PM SUPERVISOR IN CHARGE): Chronic, patient just completed physical therapy. Patient reports his leg pump just arrived today. Will use daily Assessment & Plan (07/08/2024 8:44 AM SUPERVISOR IN CHARGE): Lymphedema bilateral lower extremities with concomitant venous hypertension. Patient was tried and failed 4 weeks of knee-high compression therapy. I have recommended moving forward pneumatic compression regimen in addition to ongoing compression regimen and leg elevation. Follow up 1 month re-evaluation. Assessment & Plan (06/17/2024 10:17 AM SUPERVISOR IN CHARGE): History of heart failure ? Recent labs reviewed, normal BNP Has been following with Cardiology and had an echocardiogram 1-2 years ago, Dr. Alicia Ongoing swelling in both legs, no improvement with diuretic Reviewed recent venous Dopplers Referral to vascular Atherosclerosis of [place] ronary artery of [place] heart without angina pectoris 05/12/2024 Assessment & Plan (07/28/2024 12:56 PM SUPERVISOR IN CHARGE): Chronic, stable, continue Crestor. Unable to take aspirin due to history of GI ulcer and bleeding Congestive heart failure wit h left ventricular diastolic dysfunction 05/18/2020 Assessment & Plan (07/28/2024 12:55 PM SUPERVISOR IN CHARGE): Chronic, stable, followed by Cardiology. Patient is on metoprolol and Lasix History of upper gastrointestinal hemorrhage Assessment & Plan (07/28/2024 12:55 PM SUPERVISOR IN CHARGE): Unable to take aspirin Low back pain without sciatica 05/18/2020 Seasonal allergies 07/25/2019 Status post total knee replacement, left 019 Primary osteoarthritis of right knee 11/13/2018 Dyslipidemia 11/25/2017 Assessment & Plan (07/28/2024 12:54 PM SUPERVISOR IN CHARGE): Chronic, stable, continue Crestor Assessment & Plan (07/08/2024 8:44 AM SUPERVISOR IN CHARGE): Dyslipidemia chronic controlled. Continue current medical management. Assessment & Plan (04/21/2024 12:17 PM SUPERVISOR IN CHARGE): Patient is stable, will continue Crestor. Repeat labs in 3 months Peripheral vascular disease 11/25/2017 Assessment & Plan (07/28/2024 12:55 PM SUPERVISOR IN CHARGE): Chronic, stable, followed by vascular. Assessment & Plan (07/08/2024 8:43 AM SUPERVISOR IN CHARGE): Patient does not have clinically significant arterial occlusive disease. Palpable pedal pulses. Primarily underlying lymphedema and venous hypertension needs compression. No arterial workup needed follow up PRN. Assessment & Plan (06/17/2024 10:16 AM SUPERVISOR IN CHARGE): Noted PVD in patient's previous cardiology notes Following with Dr. Alicia, cardiology Patient requesting referral to vascular Ongoing swelling in both legs, no improvement with diuretic Reviewed recent venous Dopplers Primary osteoarthritis involving multiple joints 12/20/2016 Assessment & Plan (07/28/2024 12:55 PM SUPERVISOR IN CHARGE): Chronic, stable, continue Celebrex Restless legs syndrome (RLS) 04/10/2016 Assessment & Plan (10/07/2024 8:01 AM CDT): Exacerbated by compression sleeves and sitting. Managed with gabapentin. - Increase gabapentin to two tablets at night. 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 Unable to take blood thinner/aspirin due to history of bleeding ulcer Tinnitus, bilateral 12/09/2015 Unspecified hearing loss, bilateral 12/09/2015 Former smoker 11/11/2015 Vertigo 11/11/2015 Assessment & Plan (07/28/2024 12:55 PM SUPERVISOR IN CHARGE): Chronic, stable, continue meclizine only as needed Benign hypertension 11/09/2015 Assessment & Plan (07/28/2024 12:54 PM SUPERVISOR IN CHARGE): Chronic, stable, continue metoprolol Assessment & Plan (04/21/2024 12:17 PM SUPERVISOR IN CHARGE): Stable, patient will continue current blood pressure meds. We will continue with the Lasix 10 mg daily. Repeat labs in 3 months Assessment & Plan (04/14/2024 4:05 PM SUPERVISOR IN CHARGE): Chronic/stable. Continue meds. Will monitor with lasix Chronic obstructive lung disease 11/09/2015 Assessment & Plan (10/07/2024 8:01 AM CDT): Chronic, stable condition. Continue current medication regimen: albuterol PRN, Breo inhalers Follows with pulmonary Assessment & Plan (07/28/2024 12:54 PM SUPERVISOR IN CHARGE): Chronic, stable, continue Breo inhaler and albuterol [...] 07/28/2024 Assessment & Plan (07/23/2024 11:44 AM SUPERVISOR IN CHARGE): I have ordered a nocturnal polysomnogram split night protocol if necessary, no MSLT. The patient is concerned due to frequent urination during the night. The patient states that he does have a limited time before he needs to go to the bathroom. Hypersomnia 07/23/2024 07/28/2024 Neuropathy 04/14/2024 10/07/2024 Assessment & Plan (07/28/2024 12:55 PM SUPERVISOR IN CHARGE): Chronic, stable, continue gabapentin Assessment & Plan (04/21/2024 12:17 PM SUPERVISOR IN CHARGE): Stable, patient will continue gabapentin. Follow-up in 3 months COVID-19 05/13/2023 07/28/2024 Assessment & Plan (05/13/2023 5:31 PM SUPERVISOR IN CHARGE): VSS, NAD, lungs CTAB Hx of COPD, [...] 07/28/2024 Assessment & Plan (04/21/2024 12:17 PM SUPERVISOR IN CHARGE): Stable, followed by Cardiology. Repeat labs in 3 months Coronary arteriosclerosis 04/23/2018 Bleeding gastric ulcer 03/19/201807/28 PVC (premature ventricular contraction) 12/20/2016 07/28/2024 Anal spasm 12/09/2015 07/28/2024 Reactive airway disease 11/15/201507/2024 Overview (12/31/2018): Son has history of asthma Chronic rhinitis 11/11/2015 07/28/2024 Unspecified hemorrhoids 11/11/20150 07/2024 Wheezing 11/11/2015 07/28/2024
--- OUTSIDE RECORDS SUMMARY | 2025-01-29 01:26 | XMS_ITS | Clinical Summary ---
Author Organization [facility] Address [facility] [place] [address] Care Team Providers Care Transportation Inspector Name Role Phone Unavailable Primary Care Provider [...] - 1-dose 75+ series) 2012 COVID-19 Vaccine (1 - 2023-2 5 season) 2025 Meningococcal B Vaccine Aged Out No l onger eligible based on patient's age to complete this topic Meningococcal Vaccine Aged Out No eduardo vmasi eligible based on patient's age to complete this topic RSV Immunizations Under 20 Months Aged Out No longer eligible based on patient's age to complete this topic
--- OUTSIDE RECORDS SUMMARY | 2025-01-29 01:26 | XMS_ITS | Encounter Summary ---
Author Organization [facility] Facility Care Team Providers Care Groundman/Lineman Name Role Phone Ren Sanchez MD Primary Care Provid er Manuel Alicia MD Unavailable [phone] Nabila Vela Primary Care Provider [phone] Shannon Steven MD Unavailable Veronica Murdock Primary Care Provider + Ren Sanchez MD Primary Care Provid er Nabila Vela Primary Care Provider [phone] Veronica Murdock Primary Care Provider + Cyndi Hayes MD Unavailable [phone] Encounter Details Date Type Department Care Team (Latest Contact Info) Description 02/26/2017 Orders Only [facility] CLINCONV ProviderRafael MD [address] [place] [address] Social History Tobacco Use Types Packs/Day Years Used Date Smoking Tobacco: Never Assessed Sex and Gender Information Value Date Recorded Sex Assigned at Not on file Legal Sex Male 4:15 AM SPECIAL TESTER Gender Identity Male 07/22/2020 7:05 AM SPECIAL TESTER Sexual Orientation Not on file documented as [...] COVID: Suspected 05/13/2023 05/13/2023 05/13/2023 4:47 PM SPECIAL TESTER COVID: Suspected 05/13/2023 05/13/2023 05/13/2023 4:47 PM SPECIAL TESTER COVID19 05/13/2023 05/13/2023 05/23/2023 3:05 AM SPECIAL TESTER COVID: Recovered Comment:Added based on recent COVID infection. 05/23/2023 05/31/2023 08/21/2023 3:06 AM C DT COVID: Suspected 02/04/2024 02/04/2024 02/04/2024 12:07 PM CDT documented as of this encounter Care Teams Groundman/Lineman Relationship Specialty Start Date End Date Ren Sanchez MD [address] [place] [address] PCP - General Family Medicine 07/15/18 04/20/24 Nabila Vela PA [address] [place] [address] PCP - General Family Medicine 04/21/24 05/05/24 Veronica Murdock PA [address] [address] PCP - General Family Medicine 05/06/24 05/11/24 Ren Sanchez MD [address] [place] [address] PCP - General Family Medicine 05/12/24 07/13/24 Nabila Vela PA [address] [place] [address] PCP - General Family Medicine 07/14/24 10/05/24 Veronica Murdock PA [address] [address] PCP - General Family Medicine 10/06/24 Manuel Alicia MD [address] [place] [address] Referring Physician Cardiovascular Disease 01/07/19 Shannon Steven MD [address] [facility], [address] [address] Consulting Physician Pain Management 05/02/24 Cyndi Hayes MD [address] [place] [address] Consulting Physician Family Medicine 11/20/24 documented as of this encounter
--- OUTSIDE RECORDS SUMMARY | 2025-01-29 01:26 | XMS_ITS | Encounter Summary ---
Author Organization [facility] Facility Care Team Providers Care Centrifugal Separator Name Role Phone Ren Sanchez MD Primary Care Provid er Manuel Alicia MD Unavailable [phone] Nabila Vela Primary Care Provider [phone] Shannon Steven MD Unavailable Veronica Murdock Primary Care Provider + Ren Sanchez MD Primary Care Provid er Nabila Vela Primary Care Provider [phone] Veronica Murdock Primary Care Provider + Cyndi Hayes MD Unavailable [phone] Encounter Details Date Type Department Care Team (Latest Contact Info) Description 11/16/2016 Orders Only [facility] CLINCONV ProviderRafael MD [address] [place] [address] Social History Tobacco Use Types Packs/Day Years Used Date Smoking Tobacco: Never Assessed Sex and Gender Information Value Date Recorded Sex Assigned at Not on file Legal Sex Male 4:15 AM FOUNTAIN JERK Gender Identity Male 07/22/2020 7:05 AM FOUNTAIN JERK Sexual Orientation Not on file documented as [...] COVID: Suspected 05/13/2023 05/13/2023 05/13/2023 4:47 PM FOUNTAIN JERK COVID: Suspected 05/13/2023 05/13/2023 05/13/2023 4:47 PM FOUNTAIN JERK COVID19 05/13/2023 05/13/2023 05/23/2023 3:05 AM FOUNTAIN JERK COVID: Recovered Comment:Added based on recent COVID infection. 05/23/2023 05/31/2023 08/21/2023 3:06 AM C DT COVID: Suspected 02/04/2024 02/04/2024 02/04/2024 12:07 PM CDT documented as of this encounter Care Teams Centrifugal Separator Relationship Specialty Start Date End Date Ren Sanchez MD [address] [place] [address] PCP - General Family Medicine 07/15/18 04/20/24 Nabila Vela PA [address] [place] [address] PCP - General Family Medicine 04/21/24 05/05/24 Veronica Murdock PA [address] [address] PCP - General Family Medicine 05/06/24 05/11/24 Ren Sanchez MD [address] [place] [address] PCP - General Family Medicine 05/12/24 07/13/24 Nabila Vela PA [address] [place] [address] PCP - General Family Medicine 07/14/24 10/05/24 Veronica Murdock PA [address] [address] PCP - General Family Medicine 10/06/24 Manuel Alicia MD [address] [place] [address] Referring Physician Cardiovascular Disease 01/07/19 Shannon Steven MD [address] [facility], [address] [address] Consulting Physician Pain Management 05/02/24 Cyndi Hayes MD [address] [place] [address] Consulting Physician Family Medicine 11/20/24 documented as of this encounter
--- OUTSIDE RECORDS SUMMARY | 2025-01-29 01:26 | XMS_ITS | Encounter Summary ---
Author Organization [facility] Facility Care Team Providers Care Explosive Operator Bomb Name Role Phone Ren Sanchez MD Primary Care Provid er Manuel Alicia MD Unavailable [phone] Nabila Vela Primary Care Provider [phone] Shannon Steven MD Unavailable Veronica Murdock Primary Care Provider + Ren Sanchez MD Primary Care Provid er Nabila Vela Primary Care Provider [phone] Veronica Murdock Primary Care Provider + Cyndi Hayes MD Unavailable [phone] Encounter Details Date Type Department Care Team (Latest Contact Info) Description 04/10/2017 Orders Only [facility] CLINCONV ProviderRafael MD [address] [place] [address] Social History Tobacco Use Types Packs/Day Years Used Date Smoking Tobacco: Never Assessed Sex and Gender Information Value Date Recorded Sex Assigned at Not on file Legal Sex Male 4:15 AM HYDRODYNAMICIST Gender Identity Male 07/22/2020 7:05 AM HYDRODYNAMICIST Sexual Orientation Not on file documented as of this encounter Plan of Treatment Not on file documented as of this encounter Procedures Procedure Name Priority Date/Time Associated Diagnosis Comments SCAN - LABS 04/10/2017 12:00 AM HYDRODYNAMICIST documented in this encounter Results * SCAN - LABS (04/10/2017 12:00 AM HYDRODYNAMICIST) Narrative 04/10/2017 12:00 AM HYDRODYNAMICIST Ordered by an unspecified provider. us Historical Provider Final Res ult documented in this encounter Visit Diagnoses Not on filedocumented in this encounter Additional Health Concerns Infection Onset Date Last Indicated Resolved Time COVID: Suspected 05/13/2023 05/13/2023 05/13/2023 4:47 PM HYDRODYNAMICIST COVID: Suspected 05/13/2023 05/13/2023 05/13/2023 4:47 PM HYDRODYNAMICIST COVID19 05/13/2023 05/13/2023 05/23/2023 3:05 AM HYDRODYNAMICIST COVID: Recovered Comment:Added based on recent COVID infection. 05/23/2023 05/31/2023 08/21/2023 3:06 AM C DT COVID: Suspected 02/04/2024 02/04/2024 02/04/2024 12:07 PM CDT documented as of this encounter Care Teams Explosive Operator Bomb Relationship Specialty Start Date End Date Ren Sanchez MD [address] [place] [address] PCP - General Family Medicine 07/15/18 04/20/24 Nabila Vela PA [address] [place] [address] PCP - General Family Medicine 04/21/24 05/05/24 Veronica Murdock PA [address] [address] PCP - General Family Medicine 05/06/24 05/11/24 Ren Sanchez MD [address] [place] [address] PCP - General Family Medicine 05/12/24 07/13/24 Nabila Vela PA [address] [place] [address] PCP - General Family Medicine 07/14/24 10/05/24 Veronica Murdock PA [address] [address] PCP - General Family Medicine 10/06/24 Manuel Alicia MD [address] [place] [address] Referring Physician Cardiovascular Disease 01/07/19 Shannon Steven MD [address] [facility], [address] [address] Consulting Physician Pain Management 05/02/24 Cyndi Hayes MD [address] [place] [address] Consulting Physician Family Medicine 11/20/24 documented as of this encounter
--- OUTSIDE RECORDS SUMMARY | 2025-01-29 01:26 | XMS_ITS | Encounter Summary ---
Author Organization [facility] Facility Care Team Providers Care Hotel Registration Clerk Name Role Phone Ren Sanchez MD Primary Care Provid er Manuel Alicia MD Unavailable [phone] Nabila Vela Primary Care Provider [phone] Shannon Steven MD Unavailable Veronica Murdock Primary Care Provider + Ren Sanchez MD Primary Care Provid er Nabila Vela Primary Care Provider [phone] Veronica Murdock Primary Care Provider + Cyndi Hayes MD Unavailable [phone] Encounter Details Date Type Department Care Team (Latest Contact Info) Description 04/02/2018 Orders Only [facility] CLINCONV ProviderRafael MD [address] [place] [address] Social History Tobacco Use Types Packs/Day Years Used Date Smoking Tobacco: Never Assessed Sex and Gender Information Value Date Recorded Sex Assigned at Not on file Legal Sex Male 4:15 AM EXECUTIVE PRODUCER Gender Identity Male 07/22/2020 7:05 AM EXECUTIVE PRODUCER Sexual Orientation Not on file documented as of this encounter Plan of Treatment Not on file documented as of this encounter Procedures Procedure Name Priority Date/Time Associated Diagnosis Comments CARDIOLOGY REPORT 04/22/2018 12: 00 AM EXECUTIVE PRODUCER documented in this encounter Results * CARDIOLOGY REPORT (04/22/2018 12:00 AM EXECUTIVE PRODUCER) Anatomical Region Laterality Modality Other Narrative 04/22/2018 12:00 AM EXECUTIVE PRODUCER Ordered by an unspecified provider. us Historical Provider [facility] KY[facility] MELCHOR Final Result documented in this encounter Visit Diagnoses Not on filedocumented in this encounter Additional Health Concerns Infection Onset Date Last Indicated Resolved Time COVID: Suspected 05/13/2023 05/13/2023 05/13/2023 4:47 PM EXECUTIVE PRODUCER COVID: Suspected 05/13/2023 05/13/2023 05/13/2023 4:47 PM EXECUTIVE PRODUCER COVID19 05/13/2023 05/13/2023 05/23/2023 3:05 AM EXECUTIVE PRODUCER COVID: Recovered Comment:Added based on recent COVID infection. 05/23/2023 05/31/2023 08/21/2023 3:06 AM C DT COVID: Suspected 02/04/2024 02/04/2024 02/04/2024 12:07 PM CDT documented as of this encounter Care Teams Hotel Registration Clerk Relationship Specialty Start Date End Date Ren Sanchez MD [address] [place] [address] PCP - General Family Medicine 07/15/18 04/20/24 Nabila Vela PA [address] [place] [address] PCP - General Family Medicine 04/21/24 05/05/24 Veronica Murdock PA [address] [address] PCP - General Family Medicine 05/06/24 05/11/24 Ren Sanchez MD [address] [place] [address] PCP - General Family Medicine 05/12/24 07/13/24 Nabila Vela PA [address] [place] [address] PCP - General Family Medicine 07/14/24 10/05/24 Veronica Murdock PA [address] [address] PCP - General Family Medicine 10/06/24 Manuel Alicia MD [address] [place] [address] Referring Physician Cardiovascular Disease 01/07/19 Shannon Steven MD [address] [facility], [address] [address] Consulting Physician Pain Management 05/02/24 Cyndi Hayes MD [address] [place] [address] Consulting Physician Family Medicine 11/20/24 documented as of this encounter
--- OUTSIDE RECORDS SUMMARY | 2025-01-29 01:26 | XMS_ITS | Encounter Summary ---
Author Organization [facility] Facility Care Team Providers Care Senior Informatica Developer Name Role Phone Ren Sanchez MD Primary Care Provid er Manuel Alicia MD Unavailable [phone] Nabila Vela Primary Care Provider [phone] Shannon Steven MD Unavailable Veronica Murdock Primary Care Provider + Ren Sanchez MD Primary Care Provid er Nabila Vela Primary Care Provider [phone] Veronica Murdock Primary Care Provider + Cyndi Hayes MD Unavailable [phone] Encounter Details Date Type Department Care Team (Latest Contact Info) Description 06/27/2018 Orders Only [facility] CLINCONV ProviderRafael MD [address] [place] [address] Social History Tobacco Use Types Packs/Day Years Used Date Smoking Tobacco: Never Assessed Sex and Gender Information Value Date Recorded Sex Assigned at Not on file Legal Sex Male 4:15 AM ASSOCIATE PROFESSOR OF AUTOMATION Gender Identity Male 07/22/2020 7:05 AM ASSOCIATE PROFESSOR OF AUTOMATION Sexual Orientation Not on file documented as of this encounter Plan of Treatment Not on file documented as of this encounter Procedures Procedure Name Priority Date/Time Associated Diagnosis Comments CARDIOLOGY REPORT 07/24/2018 12: 00 AM ASSOCIATE PROFESSOR OF AUTOMATION PROCEDURE - RESULT 06/27/2018 12 :00 AM ASSOCIATE PROFESSOR OF AUTOMATION documented in this encounter Results * CARDIOLOGY REPORT (07/24/2018 12:00 AM ASSOCIATE PROFESSOR OF AUTOMATION) Anatomical Region Laterality Modality Other Narrative 07/24/2018 12:00 AM ASSOCIATE PROFESSOR OF AUTOMATION Ordered by an unspecified provider. us Historical Provider [facility] PROCE DURES Final Result * PROCEDURE - RESULT (06/27/2018 12:00 AM ASSOCIATE PROFESSOR OF AUTOMATION) Narrative 06/27/2018 12:00 AM ASSOCIATE PROFESSOR OF AUTOMATION Ordered by an unspecified provider. us Historical Provider Final Res ult documented in this encounter Visit Diagnoses Not on filedocumented in this encounter Additional Health Concerns Infection Onset Date Last Indicated Resolved Time COVID: Suspected 05/13/2023 05/13/2023 05/13/2023 4:47 PM ASSOCIATE PROFESSOR OF AUTOMATION COVID: Suspected 05/13/2023 05/13/2023 05/13/2023 4:47 PM ASSOCIATE PROFESSOR OF AUTOMATION COVID19 05/13/2023 05/13/2023 05/23/2023 3:05 AM ASSOCIATE PROFESSOR OF AUTOMATION COVID: Recovered Comment:Added based on recent COVID infection. 05/23/2023 05/31/2023 08/21/2023 3:06 AM C DT COVID: Suspected 02/04/2024 02/04/2024 02/04/2024 12:07 PM CDT documented as of this encounter Care Teams Senior Informatica Developer Relationship Specialty Start Date End Date Ren Sanchez MD [address] [place] [address] PCP - General Family Medicine 07/15/18 04/20/24 Nabila Vela PA [address] [place] [address] PCP - General Family Medicine 04/21/24 05/05/24 Veronica Murdock PA [address] [facility] [address] [place] [address] PCP - General Family Medicine 05/06/24 05/11/24 Ren Sanchez MD [address] [place] [address] PCP - General Family Medicine 05/12/24 07/13/24 Nabila Vela PA [address] [place] [address] PCP - General Family Medicine 07/14/24 10/05/24 Veronica Murdock PA [address] [address] PCP - General Family Medicine 10/06/24 Manuel Alicia MD [address] [place] [address] Referring Physician Cardiovascular Disease 01/07/19 Shannon Steven MD [address] [facility], [address] [address] Consulting Physician Pain Management 05/02/24 Cyndi Hayes MD [address] [place] [address] Consulting Physician Family Medicine 11/20/24 documented as of this encounter
--- NOTE | 2025-01-29 07:24 | WPDHPUPDATE1 ---
History and Physical Update Update Date/Time: 01/29/25 07:24 History and Physical has been reviewed, including an updated exam of the patient. There are NO changes in the patient's condition. Risks, benefits, and alternatives have been discussed and questions answered. Patient agrees to proceed with procedure.
[2025-01-29] MEDS: KETOROLAC 15 MG/ML VIAL (*BKC) IV PUSH (08:09)
[2025-01-29] MEDS: LACTATED RINGERS 1,000 ML 30 ML IV CONT ×2 (08:10→11:11)
--- NOTE | 2025-01-29 08:12 | WPDANESEPPF ---
Anes - Initial Pre Proc Eval Procedure: Operation Date: 01/29/25 09:00 Proposed Procedures p Left Hallux Arthrodesis, - Virgil Argueta MD s Excision of Medial Toenail, Second and Third Hammer Toe Correction - Virgil Argueta MD Date/Time: 01/29/25 08:12 Surgeon: Virgil Argueta MD Pre Op Diagnosis: left foot claw toes, ingrown toenail Patient Data Age: 89 Gender: M Height: 1.83 m Weight: 102.5 kg Allergies Allergy/AdvReac Type Severity Reaction Status Date / Time No Known Allergies Allergy Verified 01/29/25 08:06 Home Medications ?Medication ?Instructions ?Recorded ?Confirmed ?Type acetaminophen 650 mg 650 mg PO Q12H 12/12/24 01/29/25 History tablet,extended release (Tylenol 8 Hour) ascorbic acid (vitamin C) 1,000 mg 1,000 mg PO DAILY 12/12/24 01/19/25 History capsule aspirin 81 mg tablet,delayed 81 mg PO DAILY 12/12/24 01/29/25 History release (Adult Aspirin Regimen) calcium acetate 667 mg tablet 667 mg PO ONCE 12/12/24 01/19/25 History celecoxib 200 mg capsule 200 mg PO DAILY 12/12/24 01/29/25 History cholecalciferol (vitamin D3) 25 25 mcg PO DAILY 12/12/24 01/19/25 History mcg (1,000 unit) capsule enzalutamide 80 mg tablet (Xtandi) 80 mg PO DAILY 12/12/24 01/19/25 History finasteride 5 mg tablet 5 mg PO DAILY 12/12/24 01/19/25 History fluticasone furoate 200 1 inh inhalation DAILY 12/12/24 01/19/25 History mcg/actuation blister powder for inhalation furosemide 20 mg tablet (Lasix) 40 mg PO .am 12/12/24 01/19/25 History gabapentin 300 mg capsule 300 mg PO TID 12/12/24 01/29/25 History leuprolide acetate (6 month) 45 mg 45 mg subcut [id number] 12/12/24 01/19/25 History (6 month) subcutaneous syringe loratadine 10 mg tablet 10 mg PO DAILY 12/12/24 01/19/25 History meclizine 25 mg tablet (Dramamine 25 mg PO BID PRN dizziness 12/12/24 01/19/25 History (meclizine)) metoprolol succinate 25 mg 12.5 mg PO DAILY 12/12/24 01/29/25 History tablet,extended release 24 hr montelukast 10 mg tablet 10 mg PO DAILY 12/12/24 01/19/25 History omega-3 fatty acids-fish oil 360 1 cap PO BID 12/12/24 01/19/25 History mg-1,200 mg capsule (Fish Oil) potassium gluconate 550 mg (90 mg) 550 mg PO DAILY 12/12/24 01/19/25 History tablet pramipexole 0.5 mg tablet 0.5 mg PO TID 12/12/24 01/19/25 History pramipexole 0.5 mg tablet 0.5 mg PO TID 12/12/24 01/29/25 History rosuvastatin 10 mg tablet 10 mg PO DAILY 12/12/24 01/19/25 History tizanidine 4 mg capsule 4 mg PO QHS PRN muscle spasticity 12/12/24 01/19/25 History Patient hx anesthesia problems: other (slow to awaken) Family hx anesthesia problems: none Results Review: All pre-operative results and documents have been reviewed as part of the pre-operative evaluation. 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 Left foot pain Acquired claw toe of left foot Surgical History Surgical History History of knee replacement Left Jun 2017, Right Jan 2018 Family History Family History Father Family history of arthritis Family history of malignant neoplasm Diabetes mellitus Mother Rectal cancer Sibling Breast cancer Bladder cancer Diabetes mellitus Social History Social History Smoking packs per day: 1.5 Smoking cigarettes per day: 30.0 Years smoked: 16 Smoking pack-years: 24.00 Smoking status: Former smoker Tobacco type: cigarettes Smoking end date: 05/28/72 Alcohol intake: former Substance use: never Living arrangements: with family Additional living arrangements comments: Occupation/Education: retired Gender identity (if verbalized by the patient): Male Spiritual care concerns: No Anes - Eval Final PreProcedure Day of Procedure 01/29/25 08:12 Patient weight: obese Heart: regular rate and rhythm Lungs: decreased breath sounds Airway: Mallampati scale class II Neurological: alert and oriented Last oral intake: >/= 8 hours ASA classification: III Emergent: no Anesthetic plan: proceed Anesthesia type and monitoring: general LMA and standard monitoring Results Review: All pre-operative results and documents have been reviewed as part of the pre-operative evaluation. Informed Consent: The patient's anesthetic plan and its attendant risks and benefits were discussed with the patient/family/POA. Questions were solicited and answers provided to the satisfaction of the patient/family/POA.
[2025-01-29] MEDS: ceFAZolin 2 GM in SODIUM CHLORIDE 0.9% IV 50 ML 100 ML IVPB (09:08)
[2025-01-29] MEDS: BUPivacaine HCL 0.5% 10 ML AMP 20 ML INFILTRATE (09:31)
--- NOTE | 2025-01-29 11:22 | P.OP_ITS ---
Procedure Note - Detailed Date of Procedure 01/29/25 Pre-op Diagnosis left foot claw toes, ingrown toenail Post-op Diagnosis Same Procedure Performed Left hallux interphalangeal arthrodesis, left extensor hallucis tendon transfer, 2nd and 3rd toe PIP arthrodesis, 4th and 5th toe flexor tenotomy, removal medial toenail hallux Surgeon Virgil Argueta MD Chief Pharmacist 1st customer service assistant Anesthesia General Indications 89-year-old gentleman with peripheral neuropathy and deformity of the hallux and lesser toes. Pre ulcerative state with pressure on the bony prominences unable to wear shoes. Difficulty with weight-bearing. Presents for operative treatment. Description of Procedure Patient identified in the preoperative holding. Informed consent given. Operative extremity marked. Patient received intravenous antibiotics. Patient brought to the operating room where underwent general anesthetic by anesthesia team. Positioned supine on operating room table. Time-out performed confirming the patient, site of the surgery and the plan. Left foot prepped draped usual sterile surgical fashion using a ChloraPrep skin solution. Foot and Ankle exsanguinated and calf tourniquet inflated to 250 mmHg. Hallux was addressed 1st. Horizontal incision made over the interphalangeal joint on the dorsum of the hallux with a 15 blade. Hemostasis controlled electrocautery. Capsule incised over the joint. The articular surface of the proximal phalanx distal phalanx were removed with sagittal saw. Bone spurs were removed with a rongeur. This was irrigated with saline reduced and fixed with a 4.0 mm headless screw confirmed with fluoroscopy. Wound irrigated and subcutaneous tissue repaired with 3-0 Monocryl interrupted suture and skin with 4-0 nylon suture. Longitudinal incision was made from the corner of the nail of the medial hallux with a 15 blade knife. Skin was elevated over the base and medial portion of the toenail. Medial edge of the nail was removed with a tenotomy scissors. The germinal matrix was removed with a curette rongeur. Wound irrigated and the skin was closed over this with 4-0 nylon interrupted suture. Launch to incision was then made over the neck of the 1st metatarsal with 15 blade hemostasis controlled dissection carried down to the extensor hallucis tendon which was then brought out of the wound after releasing distally. A drill hole was placed in the 1st metatarsal neck and confirmed with image intensification. The tendon was then transferred into the drill hole and secured with 4 x 10 BioComposite screw. Wound irrigated and the tendon was secured to the surrounding tissue with 0 Vicryl interrupted suture. Skin repaired with 3-0 Monocryl subcuticular interrupted suture and 4-0 nylon interrupted suture. 2nd toe longitudinal incision made over PIP joint with a 15 blade knife. Hemo stasis controlled electrocautery. Extensor tendon capsule removed over the joint. The end of the proximal phalanx in the articular surface of the middle phalanx was then removed with a bone cutter rongeur. This was irrigated reduced and fixed with a 1.1 mm pin confirmed with image intensification. Capsule repaired with 3-0 Monocryl interrupted suture and skin repaired with 4-0 nylon interrupted suture. 3rd toe longitudinal incision made over PIP joint with a 15 blade knife. Hemostasis controlled electrocautery. Extensor tendon capsule removed over the joint. The end of the proximal phalanx in the articular surface of the middle phalanx was then removed with a bone cutter rongeur. This was irrigated reduced and fixed with a 1.1 mm pin confirmed with image intensification. Capsule r epaired with 3-0 Monocryl interrupted suture and skin repaired with 4-0 nylon interrupted suture. Fresh 15 blade knife then used to perform percutaneous tenotomy of the flexor tendon of the 4th and 5th toe on the plantar aspect of the middle phalanx. Release of the contractures were noted. Wounds irrigated closed with 4-0 nylon interrupted suture. Sterile dressing applied. The patient was then woken from anesthesia, extubated and taken to the recovery room in stable condition. All sponge, needle, instrument counts were correct at the end of the case. Implants Arthrex 4.0 x 44 mm headless screw, 1.6 mm dynamic flex wire x2, 4 x 10 mm BioComposite tenodesis screw. Estimated Blood Loss 20 Tourniquet Time Total Tourniquet Time: 30 Drains No Packing No Pathology None sent Complications None Condition Stable Disposition PACU [facility] Billing Surgery - Charge Forward: Surgery Billing ([id number], [id number], [id number], [id number], [id number])
== END 2025-01-29 13:30 | disposition home or self-care (01) ==
PROVIDERS: Visit Provider Orthopaedic Surgery
PROC: (CPT 28750; principal; 2025-01-29 09:00)
PROC: (CPT 28760; 2025-01-29 09:00)
DX: M20.5X2 Other deformities of toe(s) (acquired), left foot (principal); L60.0 Ingrowing nail; G62.9 Polyneuropathy, unspecified; Z87.891 Personal history of nicotine dependence; E66.9 Obesity, unspecified; Z68.31 Body mass index [BMI] 31.0-31.9, adult
CPT/HCPCS: 28760; 28285 ×2; 28010 ×2; 11730; 99199; J0690; A9270; J1885; J7120